=== PATIENT | female | born 1995 | race Caucasian/White ===

== ENCOUNTER 2023-08-22 11:30 | Inpatient (IN) | payer MEDICAID ==
[~2023-08-22] VITALS: Ht 170.2 cm; Wt 114.8 kg
[2023-08-22] MEDS ORDERED: BISACODYL 10 MG SUPPOSITORY PR PRN (11:45)
[2023-08-22] MEDS ORDERED: guaiFENesin/CODEINE 10ML UDC PO PRN (11:45)
[2023-08-22] MEDS ORDERED: ALPRAZolam 0.25 MG TABLET PO PRN (11:45)
[2023-08-22] MEDS ORDERED: LACTULOSE SYRUP 10GM/15ML 30ML UDC PO PRN (11:45)
[2023-08-22] MEDS ORDERED: LOPERAMIDE 2 MG CAPSULE PO PRN (11:45)
[2023-08-22] MEDS ORDERED: Sodium Phosphate/Sodium Biphosphate ADULT enema PR PRN (11:45)
[2023-08-22] MEDS ORDERED: ONDANSETRON 4 MG ORAL DISSOLVE TABLET PO PRN (11:45)
[2023-08-22] MEDS ORDERED: CALCIUM CARBONATE 500 MG CHEW TABLET PO PRN (11:45)
[2023-08-22] MEDS ORDERED: diphenhydrAMINE 25 MG TABLET PO PRN (11:45)
[2023-08-22] MEDS ORDERED: DOCUSATE SODIUM 100 MG CAPSULE PO PRN (11:45)
[2023-08-22] MEDS ORDERED: MELATONIN 3 MG TABLET PO PRN (11:45)
--- NOTE | 2023-08-22 11:47 | PM&R Post Admission Assessment ---
PM&R HP Date of Visit: Aug 22, 2023 Time of Visit: 16:45 History of Present Illness Chief complaint: CVA HPI: This is a 28-year-old female who presents from [facility] following a CVA. She has a history of migraines and prediabetes. She does currently smoke. She is having difficulty with cognition and thought processes. Headache is chronic in nature and takes Tylenol for that. Prior level of function was fully independent. H&P by EDUARDO MCNALLY CC: Li is a 28 year old female who presents to rehab due to a CVA that occurred on 08/18. HPI: Pt currently has a LEÓN that is localized to the left temporal region. This LEÓN is about the same as her usual ones in regards to pain level. She feels weakness in her rt eye and some decreased facial sensation on the forehead b/l. Pt presented herself to the ED at [facility] in [place] on Saturday 08/18. She went to the ER bc her LEÓN that started on the previous Saturday had worsened and she was losing vision in both of her eyes. Pt has a h/o migraines but this one was worse than normal. Denies every seeing a neurologist. PMH: Pre-Diabetes PSH: Rt foot bone biopsy (2015). (2020). Two natural births. All: NKDA. NKFA. Meds: Metformin 1000mg BID. Lipitor + Aspirin - both started at [facility] in [place]. SH: Currently vapes, been vaping for 2 years. Denies alcohol. Denies recreational drugs. Denies marijuana. 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 FH: Paternal Grandmother + Grandfather both had strokes (unsure of ages). Maternal: Unsure of FH. Brother: Alive, no known conditions. ROS -general: fatigue + malaise -skin: bruising, no rashes -neuro: LEÓN. no mental fogginess -MSK: no joint pain. no muscle pain. -HENT: slight double vision, no hearing loss -Cardio: no chest pain, no palpitations -Resp: No SOB, some MARTIN -GI: No bloody BM or abdominal pain -: No blood in urine, increased frequency or urgency -Psych: Depression + Anxiety -Hematologic: No bleeding or clotting disorders Exam: General: Pt is delayed with some of her responses. Pt is in visible discomfort and kept rubbing her forehead where she felt her LEÓN. Neuro: yarder puncher III-XII in tact b/l. strength 5/5 b/l in UE + LE. Gross sensation intact UE + LE b/l. Reflexes 2+ in brachioradialis + patellar b/l. Pt knew name, day of the week, location, and reason. Pt was unable to tell me the date or who the president of the [place] was. Pt was able to count by 5s starting at 0 and going to 24. Pt was able to state how many quarters are in one dollar. Cardio: Regular rate + rhythm. No gallops or murmurs were heard. Radial pulse 2+ b/l. Posterior tibialis pulse 2+ b/l. Resp: Clear lung sounds b/l. No wheezes or crackles present. Abdomen: Bruise present in LLQ. Normal bowel sounds in all 4 Qs. No abdominal tenderness in 4Qs, epigastric, or suprapubic areas. No rebound tenderness. Labs/Imaging: Working on gathering the work-up that was performed at [facility]. Assessment CVA Pre-Diabetes Current Smoker Plan CVA -maintain the current medications that was started at [facility] Pre-Diabetes -monitor the status of her level to determine if medication changes need to be made Current Smoker -discussed with pt smoking cessation Past Dxipjek-Mgtdro-Himbdv Hx Past Med/Social Hx: Reviewed Nursing Past Med/Soc Hx, Reviewed and Corrections made Patient Social History Marrital Status: cohabiting Employed/Student: unemployed Alcohol Use: Denies Use Smoking Status: Current Everyday Smoker Past Medical History Neurological: Stroke Endocrine: Diabetes, Non-Insulin dep PM&R Allergy/Meds/Data Review Allergies Coded Allergies: No Known Drug Allergies (Unverified , 08/22/23) Home Medications Scheduled Aspirin (Aspirin EC), 325 MG PO DAILY, (Reported) Atorvastatin Calcium (Atorvastatin Calcium), 80 MG PO HS, (Reported) Clonazepam (Clonazepam), 0.5 MG PO BID, (Reported) Fexofenadine HCl (Fexofenadine HCl), 60 MG PO BID, (Reported) Fluticasone Propionate (Flonase Allergy Relief), 1-2 SPRAY NSEACH DAILY, (Reported) Gabapentin (Neurontin), 300 MG PO DAILY, (Reported) Ketoconazole (Ketoconazole), 1 APPLIC TP 3X WEEKLY, (Reported) Meloxicam (Meloxicam), 15 MG PO DAILY, (Reported) Metformin HCl (Metformin HCl ER), 1,000 MG PO BID WITH MEALS, (Reported) Olopatadine HCl (Olopatadine HCl), 1 DROP OU BID, (Reported) Triamcinolone Acet (Triamcinolone Acetonide 0.1% Ointment), 1 APPLIC TP BID, (Reported) Venlafaxine HCl (Venlafaxine HCl ER), 150 MG PO DAILY, (Reported) Scheduled PRN Cyclobenzaprine HCl (Cyclobenzaprine HCl), 10 MG PO TID PRN for SPASMS, (Reported) Current Medications Current Medications Reviewed Review of Systems Constitutional: see HPI, dizziness, malaise, weakness EENTM: no symptoms reported Respiratory: no symptoms reported Cardiovascular: no symptoms reported Gastrointestinal: no symptoms reported Genitourinary: no symptoms reported Musculoskeletal: back pain, joint pain Skin: no symptoms reported Psychiatric/Neurological: Anxiety, Depressed, Headache, Numbness, Tremors, Weakness All Other Systems Reviewed Negative Unless Noted: Yes Physical Exam Physical Exam Vital Signs Capillary Refill : Height, Weight, BMI Height: '" Weight: lbs. oz. kg; BMI Method: General Appearance: No Apparent Distress, WD/WN, Chronically ill, Obese Eyes: Bilateral Eye Normal Inspection, Bilateral Eye PERRL HEENT: PERRL/EOMI, Normal ENT Inspection, Pharynx Normal Neck: Full Range of Motion, Normal Inspection, Non Tender, Supple, Carotid Bruit Respiratory: Chest Non Tender, Lungs Clear, Normal Breath Sounds, No Accessory Muscle Use, No Respiratory Distress Cardiovascular: Regular Rate, Rhythm, No Edema, No Gallop, No JVD, No Murmur, Normal Peripheral Pulses Gastrointestinal: Normal Bowel Sounds, No Organomegaly, No Pulsatile Mass, Non Tender, Soft Back: Normal Inspection, No CVA Tenderness, No Vertebral Tenderness Extremity: Normal Capillary Refill, Normal Inspection, Normal Range of Motion, Non Tender, No Calf Tenderness, No Pedal Edema Neurologic/Psychiatric: Alert, Oriented x3, yarder puncher II-XII Norm as Tested, Depressed Affect, Disoriented (Subtle recall deficit), Motor Weakness Skin: Normal Color, Warm/Dry Lymphatic: No Adenopathy PM&R Medical Assessment & Plan REHAB/MEDICAL ASSESSMENT AND PLAN: REHAB IMPAIRMENT GROUP: Right body involvement (left brain) ETIOLOGIC DIAGNOSIS: Acute ischemic infarct left thalamus, temporal and occipital lobes The comorbidities that impact the patients function and/or functional outcome by: current smoker, elevated BMI of 39, diabetes, high risk for recurrent stroke REHAB PLAN: The patient is being admitted to our comprehensive inpatient rehabilitation facility and can tolerate the intensity of service consisting of at least: 180 minutes of therapy a day, 5 out of 7 days a week Rehab treatment will consist of: PT and OT will focus on regaining function with the use of assistive devices and speech therapy will help with cognitive deficit in order to regain enough function to return home to independent living The patient/family has a good understanding of our discharge process and will benefit from an interdisciplinary inpatient rehabilitation program. The patient has potential to make improvement and is in need of at least two of the following multidisciplinary therapies including but not limited to physical, occupational, speech, and prosthetics and orthotics. Additionally the patient will need services from respiratory, nutritional services, wound care, psychology, etc. (Customize this to each patient). Given the patients complex condition and risk of further medical complications, rehabilitation services cannot be safely or effectively provided at a lower level of care such as a [facility]. BARRIERS TO DISCHARGE: stroke deficits ESTIMATED LOS: 10 days DISPOSITION: home RELEVANT CHANGES SINCE PREADMISSION SCREENING: I have compared the patients medical and functional status at the time of the preadmission screening and there are: no changes PROGNOSIS: good REHABILITATION GOALS: 1. PT and OT will focus on regaining function with the use of assistive devices and speech therapy will help with cognitive deficit in order to regain enough function to return home to independent living All the above goals were reviewed with the patient and he/she is in agreement. By signing this document, I acknowledge that I have personally performed a full physical examination on this patient within 24 hours of admission to this inpatient rehabilitation facility and have determined the patient to be able to tolerate the above course of treatment at an intensive level for a reasonable period of time. I will be completing a detailed individualized Plan of Care for this patient by day #4 of the patients stay based upon the Preadmission Screen, the Post-Admission Evaluation, and the therapy evaluations. Admission Dx/Comorbidities: (1) CVA (cerebral vascular accident) ICD Codes: I63.9 - Cerebral infarction, unspecified Assessment/Plan Assessment and Plan Assess & Plan/Chief Complaint Assessment: CVA Obesity BMI 39 Prediabetes Migraines Plan: Supportive care Monitor closely CVA protocol meds MAGDA NASH DO Aug 22, 2023 11:47
[2023-08-22 13:32] VITALS: BP 138/86
[2023-08-22] MEDS ORDERED: KETO120S13 TP (13:36)
[2023-08-22] MEDS ORDERED: METF-478 PO (13:36)
[2023-08-22] MEDS ORDERED: FEXO-338 PO (13:36)
[2023-08-22] MEDS ORDERED: FLUT9.9S NSEACH (13:36)
[2023-08-22] MEDS ORDERED: ATOR80TA76 PO (13:36)
[2023-08-22] MEDS ORDERED: ASPI325T32 PO (13:36)
[2023-08-22] MEDS ORDERED: VENL150C98 PO (13:36)
[2023-08-22] MEDS ORDERED: GABA300C PO (13:36)
[2023-08-22] MEDS ORDERED: CLON0.5T4 PO (13:36)
[2023-08-22] MEDS ORDERED: MELO15TA39 PO (13:36)
[2023-08-22] MEDS ORDERED: OLOP5DRO26 OU (13:36)
[2023-08-22] MEDS ORDERED: TR1O15 TP (13:36)
[2023-08-22] MEDS ORDERED: CYCL10TA25 PO (13:36)
[2023-08-22] MEDS: ACETAMINOPHEN 325 MG TABLET PO PRN (14:11)
--- NOTE | 2023-08-22 14:52 | Occupational Therapy Eval ---
OT Evaluation-General/PLF Medical Diagnosis Admission Date Aug 22, 2023 at 13:26 Medical Diagnosis: CVA Onset Date: Aug 18, 2023 Therapy Diagnosis Therapy Diagnosis: decreased ADL status Precautions Precautions/Isolations: Fall Prevention, Standard Precautions Referral Physician: Ron Referral Reason: Evaluation/Treatment Medical History Additional Medical History anemia, anxiety, depression, debridement of R gread and 2nd toes with bone biopsy 2017, migraine LEÓN Current History 08/18/23 R facial droop, R weakness, slurred speech. migraine headaches daily for past week. Brought to ED where initial head CT negative, thus received TPA after review by neurology. Pt transferred to ARU 08/22/23. Social History Home: Multilevel Current Living Status: Significant Other Steps Into Home: 1 (small threshold) Pt lives with spouse, 2 y.o. daughter. She has a turtle, 2 cats and a dog. 2 roommates live downstairs with their animals. ADL-Prior Level of Function SCALE: Activities may be completed with or without assistive devices. 9-Pgqdfitffy-ksjsenu completes the activity by him/herself with no assistance from a helper. 5-Set-up or Clean-up Assistance-helper sets up or cleans up; patient completes activity. [place] assists only prior to or following the activity. 4-Supervision or Touching Assistance-helper provides verbal cues and/or touching/steadying and/or contact guard assistance as patient completes activity. Assistance may be provided throughout the activity or intermittently. 3-Partial/Moderate Assistance-helper does LESS THAN HALF the effort. [place] lifts, holds or supports trunk or limbs, but provides less than half the effort. 2-Substantial/Maximal Assistance-helper does MORE THAN HALF the effort. [place] lifts or holds trunk or limbs and provides more than half the effort. 4-Qybysvyna-nxlhsz does ALL the effort. Patient does none of the effort to complete the activity. Or, the assistance of 2 or more helpers is required for the patient to complete the activity. If activity was not attempted, code reason: 7-Patient Refused. 9-Not Applicable-not attempted and the patient did not perform the activity before the current illness, exacerbation or injury. 10-Not Attempted due to Environmental Limitations-(lack of equipment, weather restraints, etc.). 88-Not Attempted due to Medical Conditions or Safety Concerns. ADL PLOF Comments Pt reports IND with ADLs and functional mobility, no AD. 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 Pt had some difficulty with word finding and noted tremors/shakiness in head, increasing as pt fatigues. Mental Status/Objective Patient Orientation: Person, Place, Time, Situation Current Glasses/Contacts: Yes Upper Extremity ROM WFL, BUE shoulder flexion to approx 160 degrees; RUE "lags" behind L slightly. Upper Extremity Coordination grossly WFL. Slightly decreased coordination/proprioception RUE. Upper Extremity Sensation WFL per pt report Upper Extremity Strength grossly 4/5 ADL-Treatment Eating (QC): 5 (per pt report) Shower/Bathe Self (QC): 7 Upper Body Dressing (QC): 5 (Per pt report.) Lower Body Dressing (QC): 7 Toileting Hygiene (QC): 7 Other Treatments Pt provided information about PLOF and home set up and participated in UE screen. Pt declines completing ADLs at this time due to extreme fatigue, agreeable to shower and dressing tasks tomorrow. Pt had increased difficulty keeping eyes open throughout conversation, some difficulty with word finding, and tremors/shakiness in head (more prominent with increased concentration with tasks and speaking). Pt transferred sit to supine (elevated HOB) independently. Post tx, pt in bed, call light in reach and all needs met. Education OT Patient Education: Correct positioning, Energy conservation, Modified ADL techniques, Progress toward Goal/Update tx plan, Purpose of tx/functional activities, Rehab process Teaching Recipient: Patient Teaching Methods: Discussion Response to Teaching: Verbalize Understanding BIMS CAM BIMS Expression of Ideas and Wants: Difficulty Understanding Verbal Content: Understands Brief Interview/Mental Status: Yes IRF ONUR BIMS: IRF ONUR BIMS Response (Comments) Value Repitition of Three Words Three 3 Recalls Socks Yes, No Cue Required 2 Recalls Blue Yes, No Cue Required 2 Recalls Bed No, Could Not Recall 0 Year Correct 3 Month Accurate Within 5 Days 2 Day Correct 1 Total 13 Patient Normally Able to Recal: Current Session, Location of own room, That he/she in a hsp Should Staff Asses. Mental St.: No Memory/Recall Ability: Current Season, Location of Own Room, That He/She in Hospit[facility] CAM Mental Status Change/Baseline: 0 Inattention: 0 Disorganized thinkin Altered level of consciousness: 0 OT Regulatory Specialist Goals Regulatory Specialist Goals Time Frame: Sep 11, 2023 Eating (QC): 6 Oral Hygiene (QC): 6 Toileting Hygiene (QC): 6 Shower/Bathe Self (QC): 6 Upper Body Dressing (QC): 6 Lower Body Dressing (QC): 6 On/Off Footwear (QC): 6 Additional Goals: 1-Demonstrate ADL Tasks, 2-Verbalize Understanding, 3- ImproveStrength/Luisa 1=Demonstrate adherence to instructed precautions during ADL tasks. 2=Patient will verbalize/demonstrate understanding of assistive devices/modifications for ADL. 3=Patient will improve strength/tolerance for activity to enable patient to perform ADL's. OT Education/Plan Problem List/Assessment Assessment: Decreased Activ Tolerance, Decreased UE Strength, Impaired Funct Balance, Impaired I ADL's, Impaired Self-Care Skills, Restricted Funct UE ROM Discharge Recommendations Plan/Recommendations: Continue POC Equpiment Recommendations-D/C: Extended Bath Bench Treatment Plan/Plan of Care Patient would benefit from OT for education, treatment and training to promote independence in ADL's, mobility, safety and/or upper extremity function for ADL's. Plan of Care: ADL Retraining, Functional Mobility, Group Exercise/Act as Ind, UE Funct Exercise/Act, UE Neuromus Re-Ed/Coord, Visual/Perceptual Retrain Treatment Duration: Sep 11, 2023 Frequency: At least 5 of 7 days/Wk (IRF) Estimated Hrs Per Day: 1.5 hours per day Agreement: Yes Rehab Potential: Good Time Start Time: 13:40 Stop Time: 14:15 DATE: Aug 22, 2023 Total Time Billed (hr/min): 35 Billed Treatment Time 1, CHIP CHENEY OT Aug 22, 2023 14:52
--- NOTE | 2023-08-22 15:05 | Physical Therapy Evaluation ---
PT Evaluation-General Medical Diagnosis Admission Date Aug 22, 2023 at 13:26 Medical Diagnosis: CVA Onset Date: Aug 18, 2023 Therapy Diagnosis Therapy Diagnosis: impaired mobility, weakness, (R) neglect, balance deficits, fall risk Precautions Precautions/Isolations: Fall Prevention, Standard Precautions Dysconjugate gaze - eye patch Weight Bear Status Full Weight Bearing Full Weight Bearing Referral Physician: prachi Reason for Referral: Evaluation/Treatment Medical History Reviewed History: Yes Social History Home: Multilevel Current Living Status: Children PT Steps Into Home: 1 (1 small threshold/curb step up to platform then level into home.) Has a turtle, 2 cats and a dog in the house. Has 2 room mates that live downstairs with their animals. Prior Prior Level of Function SCALE: Activities may be completed with or without assistive devices. 1-Sqjznaqhre-fvcvatf completes the activity by him/herself with no assistance from a helper. 5-Set-up or Clean-up Assistance-helper sets up or cleans up; patient completes activity. [place] assists only prior to or following the activity. 4-Supervision or Touching Assistance-helper provides verbal cues and/or touching/steadying and/or contact guard assistance as patient completes activity. Assistance may be provided throughout the activity or intermittently. 3-Partial/Moderate Assistance-helper does LESS THAN HALF the effort. [place] lifts, holds or supports trunk or limbs, but provides less than half the effort. 2-Substantial/Maximal Assistance-helper does MORE THAN HALF the effort. [place] lifts or holds trunk or limbs and provides more than half the effort. 0-Nopuvxkmc-rnszbl does ALL the effort. Patient does none of the effort to complete the activity. Or, the assistance of 2 or more helpers is required for the patient to complete the activity. If activity was not attempted, code reason: 7-Patient Refused. 9-Not Applicable-not attempted and the patient did not perform the activity before the current illness, exacerbation or injury. 10-Not Attempted due to Environmental Limitations-(lack of equipment, weather restraints, etc.). 88-Not Attempted due to Medical Conditions or Safety Concerns. 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 Driving. Did all cooking and housekeeping. Tub/shower at home. PT Evaluation-Current Subjective 3-10 (L) forehead. Pain Section J - Health Conditions 1. Rarely or not at all 2. Occasionally 3. Frequently 4. Almost constantly 8. Unable to answer Pain Effect on Sleep: 3 Pain Interference with Therapy: 3 Pain Interference w/Day-to-Day: 3 Pt/Family Goals To return home at highest functional level. ROM/Strength ROM Lower Extremities WFL (B) LE's Strength Lower Extremities MMT to (B) LEs in sitting: (R) hip flexion 3+/5, abd/ad 3+/5, knee flexion 3/5, knee extension 4+/5, ankle 4/5 DF/PF. (L) LE 5/5 all planes all joints. Neuromuscular (Tone, Coordination, Reflexes) mild motor coordination impairment (R)>(L) LE. Intermittent head/neck tremor noted, more pronounced with exertion - association reaction? Sensory Vision: Neglect Right Hearing: Functional Hand Dominance: Right Sensation Right Lower Extremit: Intact Sensation Left Lower Extremity: Intact Transfers Roll Left & Right (QC): 6 Sit to Lying (QC): 6 Lying to Sitting/Side of Bed(Q: 6 Sit to Stand (QC): 4 (CGA to steady initially) Chair/Qyv-ze-Xdfyz Xfer(QC): 3 (min (A) /s device) Toilet Transfer (QC): 3 (min (A) /s device) Car Transfer (QC): 3 (mod(A) /s device to guard hip on seat when bringing legs into "car") Gait Does the Patient Walk?: Yes Mode of Locomotion: Walk Anticipated Mode of Locomotion: Walk Walk 10 feet (QC): 3 (min (A) /s device) Walk 50 ft with 2 Turns(QC): 3 (min (A) /s device) Walk 150 ft (QC): 3 (min (A) /s device) Walking 10ft/uneven surface-QC: 3 (min (A) /s device) Distance: 200' Gait Assistive Device: None Comments/Gait Description (R) neglect and need of cues for (R) obstacles and (A) to redirect gait Wheelchair Training Does the Pt Use a Wheelchair?: No Wheel 50 ft with 2 turns (QC): 9 Wheel 150 ft (QC): 9 Stairs 1 Step (curb) (QC): 3 (min (A) /s device) 4 Steps (QC): 3 (min (A) /c (B) rails - mixed stepping sequence) 12 Steps (QC): 3 (min (A) /c (B) rails - mixed stepping sequence) Balance Sitting Static: Good Sitting Dynamic: Fair Standing Static: Fair Standing Dynamic: Fair Picking up an Object (QC): 3 (min-mod (A) for balance, no device) Special Test Comments standing balance test: 4/5. sitting balance test: 4+/5 Assessment/Needs 28 y/o female s/p CVA with dysconjugate gaze, (R) neglect, (R) hemiplegia, gait/mobility/safety/balance deficits that would benefit from intensive ARU intervention. Rehab Potential: Good PT Senior Care Goals Heavy Repairer Goals PT Senior Care Goals Time Frame: Sep 05, 2023 Roll Left to Right (QC): 6 Sit to Lying (QC): 6 Lying-Sitting on Side/Bed(QC): 6 Sit to Stand (QC): 6 Chair/Rtm-zp-Hukac Xfer(QC): 6 Toilet/Commode Transfer (QC): 6 Car Transfer (QC): 6 Walk 10 feet (QC): 6 Walk 10ft-Uneven Surface(QC): 6 Walk 50ft with 2 Turns (QC): 6 Walk 150 ft (QC): 6 Wheel 50 feet with 2 turns (QC: 9 Wheel 150 feet: 9 1 Step (curb) (QC): 6 (/c rail) 4 Steps (QC): 6 12 Steps (QC): 6 Picking up an Object (QC): 6 KU sitting and standing balance scores: 5/5 PT Plan Problem List Problem List: Activity Tolerance, Functional Strength, Safety, Balance, Gait, Transfer, Bed Mobility Treatment/Plan Treatment Plan: Continue Plan of Care Treatment Plan: Education, Functional Activity Luisa, Functional Strength, Group Therapy, Gait, Safety, Therapeutic Exercise, Transfers Treatment Duration: Sep 05, 2023 Frequency: At least 5 of 7 days/Wk (IRF) Estimated Hrs Per Day: 1.5 hours per day Safety Risks/Education Patient Education: Gait Training, Transfer Techniques Teaching Recipient: Patient Teaching Methods: Demonstration, Discussion Response to Teaching: Reinforcement Needed Discharge Recommendations Therapy Discharge Recommendati: Home & Family, Post Acute PT Time Time In: 1450 Time Out: 1530 DATE: Aug 22, 2023 Total Billed Treatment Time: 40 Total Billed Treatment EVM 40 Kristel Galarza PT Aug 22, 2023 15:05
--- NOTE | 2023-08-22 15:11 | Progress Note ---
ULIEDUARDO 08/22/23 1511: Progress Note CC: Li is a 28 year old female who presents to rehab due to a CVA that occurred on 08/18. HPI: Pt currently has a LEÓN that is localized to the left temporal region. This H A is about the same as her usual ones in regards to pain level. She feels weakness in her rt eye and some decreased facial sensation on the forehead b/l. Pt presented herself to the ED at [facility] in [place] on Saturday 08/18. She went to the ER bc her LEÓN that started on the previous Saturday had worsened and she was losing vision in both of her eyes. Pt has a h/o migraines but this one was worse than normal. Denies every seeing a neurologist. PMH: Pre-Diabetes PSH: Rt foot bone biopsy (2015). (2020). Two natural births. All: NKDA. NKFA. Meds: Metformin 1000mg BID. Lipitor + Aspirin - both started at [facility] in [place]. SH: Currently vapes, been vaping for 2 years. Denies alcohol. Denies recreational drugs. Denies marijuana. 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 FH: Paternal Grandmother + Grandfather both had strokes (unsure of ages). Maternal: Unsure of FH. Brother: Alive, no known conditions. ROS -general: fatigue + malaise -skin: bruising, no rashes -neuro: LEÓN. no mental fogginess -MSK: no joint pain. no muscle pain. -HENT: slight double vision, no hearing loss -Cardio: no chest pain, no palpitations -Resp: No SOB, some MARTIN -GI: No bloody BM or abdominal pain -: No blood in urine, increased frequency or urgency -Psych: Depression + Anxiety -Hematologic: No bleeding or clotting disorders Exam: General: Pt is delayed with some of her responses. Pt is in visible discomfort and kept rubbing her forehead where she felt her LEÓN. Neuro: shake feeder III-XII in tact b/l. strength 5/5 b/l in UE + LE. Gross sensation intact UE + LE b/l. Reflexes 2+ in brachioradialis + patellar b/l. Pt knew name, day of the week, location, and reason. Pt was unable to tell me the date or who the president of the [place] was. Pt was able to count by 5s starting at 0 and going to 24. Pt was able to state how many quarters are in one dollar. Cardio: Regular rate + rhythm. No gallops or murmurs were heard. Radial pulse 2+ b/l. Posterior tibialis pulse 2+ b/l. Resp: Clear lung sounds b/l. No wheezes or crackles present. Abdomen: Bruise present in LLQ. Normal bowel sounds in all 4 Qs. No abdominal tenderness in 4Qs, epigastric, or suprapubic areas. No rebound tenderness. Labs/Imaging: Working on gathering the work-up that was performed at [facility]. Assessment CVA Pre-Diabetes Current Smoker Plan CVA -maintain the current medications that was started at [facility] Pre-Diabetes -monitor the status of her level to determine if medication changes need to be made Current Smoker -discussed with pt smoking cessation MICHELLE NASH DO 08/22/23 2030: Supervisory-Addendum Brief Verification & Attestation Participated in pt care: history, MDM, physical Personally performed: exam, history, MDM, supervision of care Care discussed with: Medical Student Procedures: n/a Results interpretation: Verified all documentation Verification and Attestation of Medical Student E/M Service A medical student performed and documented this service in my presence. I reviewed and verified all information documented by the medical student and made modifications to such information, when appropriate. I personally performed the physical exam and medical decision making. Michelle Nash Aug 22, 2023,20:30 EDUARDO MCNALLY Aug 22, 2023 15:11 MICHELLE NASH DO Aug 22, 2023 20:30
[2023-08-22] MEDS ORDERED: NON-FORMULARY MEDICATION 1 EA EA (Ketoconazole 1 APPLIC) TP SCH (15:15)
[2023-08-22] MEDS ORDERED: RX-CYCLOBENZAPRINE 10 MG (FLEXERIL) TAB PPK#3 PO PRN (15:15)
[2023-08-22] MEDS ORDERED: CYCLOBENZAPRINE 10 MG TABLET PO PRN (15:30)
[2023-08-22] MEDS ORDERED: HYDROcodone/ACETAMINOPHEN 5 MG/325 MG TABLET PO PRN (17:00)
[2023-08-22] MEDS: metFORMIN EXT RELEASE 500 MG TABLET PO SCH (17:07)
[2023-08-22] MEDS: clonazePAM 0.5 MG TABLET PO SCH (20:57)
[2023-08-22] MEDS: OLOPATADINE 0.1% OU SCH (20:57)
[2023-08-22] MEDS: DOCUSATE SODIUM 100 MG CAPSULE PO SCH (20:57)
[2023-08-22] MEDS: SENNA W/DOCUSATE TABLET PO SCH (20:57)
[2023-08-22] MEDS: TRIAMCINOLONE 0.1% OINT (KENALOG) 15 GM TUBE TP SCH (20:58)
[2023-08-22] MEDS ORDERED: FEXOFENADINE HCL 60 MG PO SCH (21:00)
[2023-08-22 21:47] VITALS: BP 118/79
[2023-08-23] MEDS: VENlafaxine XR 75 MG (EFFEXOR XR) CAP PO SCH (06:02)
[2023-08-23 06:09] LABS: BASOPHILS % (AUTO) 0 % (0-10); EOSINOPHILS # (AUTO) 0.1 10^3/uL (0.0-0.3); EOSINOPHILS % (AUTO) 1 % (0-10); HEMATOCRIT 40 % (35-52); HEMOGLOBIN 13.1 g/dL (11.5-16.0); LYMPHOCYTES # (AUTO) 2.1 10^3/uL (1.0-4.0); LYMPHOCYTES % (AUTO) 17 % (12-44); MEAN CORPUSCULAR HEMOGLOBIN 30 pg (25-34); MEAN CORPUSCULAR HGB CONC 33 g/dL (32-36); MEAN CORPUSCULAR VOLUME 91 fL (80-99); MEAN PLATELET VOLUME 9.9 fL (9.0-12.2); MONOCYTES # (AUTO) 0.7 10^3/uL (0.0-1.0); MONOCYTES % (AUTO) 6 % (0-12); NEUTROPHILS # (AUTO) 9.3 10^3/uL (1.8-7.8); NEUTROPHILS % (AUTO) 76 % (42-75); PLATELET COUNT 239 10^3/uL (130-400); WHITE BLOOD COUNT 12.2 10^3/uL (4.3-11.0)
[2023-08-23 06:42] LABS: ALBUMIN 3.4 GM/DL (3.2-4.5); BILIRUBIN,TOTAL 0.3 MG/DL (0.1-1.0); CALCIUM 8.8 MG/DL (8.5-10.1); CREATININE SERUM 0.78 MG/DL (0.60-1.30); POTASSIUM 4.1 MMOL/L (3.6-5.0); TOTAL PROTEIN 6.5 GM/DL (6.4-8.2)
[2023-08-23 08:00] VITALS: BP 126/75
--- NOTE | 2023-08-23 08:23 | Physical Therapy Daily Note ---
PT Daily Note-Current Subjective States she had an allergic reaction last night to something she ate and did not sleep well. States she does not have a headache. Pain Section J - Health Conditions 1. Rarely or not at all 2. Occasionally 3. Frequently 4. Almost constantly 8. Unable to answer Pain Effect on Sleep: 2 Pain Interference with Therapy: 2 Pain Interference w/Day-to-Day: 2 Transfers SCALE: Activities may be completed with or without assistive devices. 3-Ccypcdqtzc-fcqcobo completes the activity by him/herself with no assistance from a helper. 5-Set-up or Clean-up Assistance-helper sets up or cleans up; patient completes activity. [place] assists only prior to or following the activity. 4-Supervision or Touching Assistance-helper provides verbal cues and/or touching/steadying and/or contact guard assistance as patient completes activity. Assistance may be provided throughout the activity or intermittently. 3-Partial/Moderate Assistance-helper does LESS THAN HALF the effort. [place] lifts, holds or supports trunk or limbs, but provides less than half the effort. 2-Substantial/Maximal Assistance-helper does MORE THAN HALF the effort. [place] lifts or holds trunk or limbs and provides more than half the effort. 4-Dknekpjna-kjbueo does ALL the effort. Patient does none of the effort to complete the activity. Or, the assistance of 2 or more helpers is required for the patient to complete the activity. If activity was not attempted, code reason: 7-Patient Refused. 9-Not Applicable-not attempted and the patient did not perform the activity before the current illness, exacerbation or injury. 10-Not Attempted due to Environmental Limitations-(lack of equipment, weather restraints, etc.). 88-Not Attempted due to Medical Conditions or Safety Concerns. Lying to Sitting/Side of Bed(Q: 6 Sit to Stand (QC): 4 (SBA) Chair/Fkl-zn-Tiesl Xfer(QC): 4 (SBA-CGA) Toilet Transfer (QC): 4 (CGA for descent to toilet) Weight Bearing Full Weight Bearing Full Weight Bearing Gait Training Distance: 200' x 2 Walk 10 feet (QC): 4 (CGA /c cues to scan environment and avoid (R) obstacles, cues to stay centered in jack[address]) Walk 50 ft with 2 Turns(QC): 4 (CGA /c cues to scan environment and avoid (R) obstacles, cues to stay centered in jack[address] way) Walk 150 ft (QC): 4 (CGA /c cues to scan environment and avoid (R) obstacles, cues to stay centered in jack[address]) Gait Assistive Device: None Exercises O2 sats 98%, HR 105 at 8 minute donn on Nustep. NuStep Minutes: 15 NuStep Workload: 2 Neuromuscular Standing balance at map with scanning task and locating items on map x 8 ' -- difficulty finding items in lower (R) quadrant. Cues to use (R) UE to trace paths on map. Walking CGA while scanning environment, cues needed, to find 8 cones at different heights and locations to help scan environment, especially (R), to accommodate (R) neglect. Able to pick cone up off floor with CGA PT Securities Analyst Goals Shelter Goals PT Shelter Goals Time Frame: Sep 05, 2023 Roll Left & Right (QC): 6 Sit to Lying (QC): 6 Lying-Sitting on Side/Bed(QC): 6 Sit to Stand (QC): 6 Chair/Fsc-xl-Xrdod Xfer(QC): 6 Toilet Transfer (QC): 6 Car Transfer (QC): 6 Does the Patient Walk: Yes Walk 10 feet (QC): 6 Walk 50ft with 2 Turns (QC): 6 Walk 150 ft (QC): 6 Walking 10ft on Uneven Surface: 6 1 Step (curb) (QC): 6 (/c rail) 4 Steps (QC): 6 12 Steps (QC): 6 Picking up an Object (QC): 6 Wheel 50 feet with 2 turns (QC: 9 Wheel 150 feet: 9 PT Plan Treatment/Plan Treatment Plan: Continue Plan of Care Treatment Plan: Education, Functional Activity Luisa, Functional Strength, Group Therapy, Gait, Safety, Therapeutic Exercise, Transfers Treatment Duration: Sep 05, 2023 Frequency: At least 5 of 7 days/Wk (IRF) Estimated Hrs Per Day: 1.5 hours per day Time Time In: 800 Time Out: 845 DATE: Aug 23, 2023 Total Billed Treatment Time: 45 Total Billed Treatment 1 GT, 1 EX, 1 NRE. Kristel Galarza PT Aug 23, 2023 08:23
[2023-08-23] MEDS ORDERED: NON-FORMULARY MEDICATION 1 EA EA (Meloxicam 15 MG) PO SCH (09:00)
[2023-08-23] MEDS ORDERED: NON-FORMULARY MEDICATION 1 EA EA (Aspirin (Aspirin EC) 325 MG) PO SCH (09:00)
[2023-08-23] MEDS ORDERED: NON-FORMULARY MEDICATION 1 EA EA (Fluticasone Propionate (Flonase Allergy Relief) 0 SPRAY) NSEACH SCH (09:00)
[2023-08-23] MEDS ORDERED: NON-FORMULARY MEDICATION 1 EA EA (Venlafaxine HCl (Venlafaxine HCl ER) 150 MG) PO SCH (09:00)
[2023-08-23] MEDS: SENNA W/DOCUSATE TABLET PO SCH ×2 (09:03→19:07)
[2023-08-23] MEDS: DOCUSATE SODIUM 100 MG CAPSULE PO SCH ×2 (09:03→19:07)
[2023-08-23] MEDS: metFORMIN EXT RELEASE 500 MG TABLET PO SCH ×2 (09:06→17:31)
[2023-08-23] MEDS: ASPIRIN enteric coated 81MG TABLET PO SCH (09:06)
[2023-08-23] MEDS: GABAPENTIN 300 MG CAPSULE PO SCH (09:06)
[2023-08-23] MEDS: LORATADINE 10 MG TABLET PO SCH (09:06)
[2023-08-23] MEDS: MELOXICAM 7.5 MG TABLET PO SCH (09:06)
[2023-08-23] MEDS: clonazePAM 0.5 MG TABLET PO SCH ×2 (09:06→20:45)
[2023-08-23] MEDS: TRIAMCINOLONE 0.1% OINT (KENALOG) 15 GM TUBE TP SCH ×2 (09:07→20:45)
[2023-08-23] MEDS: OLOPATADINE 0.1% OU SCH ×2 (09:07→20:45)
[2023-08-23] MEDS: FLUTICASONE NASAL SPRAY (120 SPRAYS) NS SCH (09:08)
--- NOTE | 2023-08-23 09:49 | Progress Note ---
ULIEDUARDO 08/23/23 0949: Progress Note 08/22: Li had a CVA on 08/18 that was found at [facility]. Pt was transferred from [facility] to [facility] on 08/22. PT and OT performed their initial evaluations and dx was decreased ADL status, impaired mobility, weakness, (R) neglect, balance deficits, fall risk. 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 Prior level of function was rated 6s. PT rated the ROM Lower Extremities WFL (B) LE's anf Strength Lower Extremities: MMT to (B) LEs in sitting: (R) hip flexion 3+/5, abd/ad 3+/5, knee flexion 3/5, knee extension 4+/5, ankle 4/5 DF/PF. (L) LE 5/5 all planes all joints. PT found mild motor coordination impairment (R)>(L) LE. Intermittent head/neck tremor noted, more pronounced with exertion - association reaction. Vision has right neglect. Hearing is functional. Pt is right hand dominant. Sensation to LEs are intact b/l. Transfers were rate 3 through 6. Toilet and car transfer were both rated 3. Pt was able to walk 200'. Due to the right neglect the pt is in need of cues for right obstacles and to redirect gait. Balance is fair. 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 Today (08/23): Pt was wearing her eye patch over her left eye during the visit and verbalized that she would have to transfer it to the other eye when it was appropriate. She reported muscle weakness localized to her mouth that occurred last night and is not currently present. She is unsure if it was due to an allergic rxn to some of the medications. Her LEÓN is almost gone and is significantly decreased in intensity compared to yesterday. Pt was oriented to person, place, and reason. PT rated her transfers a 4 with the 6 given to lying to sitting/side of bed. This is an improvement from yesterday where they were 3s. Pt is full weight bearing. Pt walked 200' twice. PT reports that when locating items on a map she had difficulty finding items in the lower right quadrant. Cues were needed to trace the map using her right UE. MICHELLE NASH DO 08/24/23 0631: Supervisory-Addendum Brief Verification & Attestation Participated in pt care: history, MDM, physical Personally performed: exam, history, MDM, supervision of care Care discussed with: Medical Student Procedures: n/a Results interpretation: Verified all documentation Verification and Attestation of Medical Student E/M Service A medical student performed and documented this service in my presence. I reviewed and verified all information documented by the medical student and made modifications to such information, when appropriate. I personally performed the physical exam and medical decision making. Michelle Nash, Aug 24, 2023,06:31 EDUARDO MCNALLY Aug 23, 2023 09:49 MICHELLE NASH DO Aug 24, 2023 06:31
--- NOTE | 2023-08-23 11:37 | ST Cognitive Linguistic Eval ---
Speech Evaluation-General Medical Diagnosis CVA Onset Date: Aug 18, 2023 Therapy Diagnosis Therapy Diagnosis: Cognitive Linguistic Deficit Precautions Precautions/Isolations: Standard Precautions Referral Referring Physician: Dr. Velasquez Reason for Referral: Evaluation/Treatment Medical History anemia, anxiety, depression, debridement of R gread and 2nd toes with bone biopsy 2017, migraine LEÓN Current History 08/18/23 R facial droop, R weakness, slurred speech. migraine headaches daily for past week. Brought to ED where initial head CT negative, thus received TPA after review by neurology. Pt transferred to ARU 08/22/23. 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 Subjective Pt was sitting in bedside chair and expressed that she was tired. Language Eval: Auditory Comprehends Simple Yes/No Ques: Functional Follows General Conversations: Functional Language Eval: Verbal Language Completes Spontaneous Greeting: Functional Word Finding: Mild States Basic Personal Info: Functional Expresses Complex Ideas: Moderate Language Evaluation: Reading Follows Simple Written Direct: Functional Comprehends Multiple Sentences: Mild Objective Formal/Standardized Tests SLUMS, Berger Naming Test, and portions of the Western Aphasia Battery Results Pt scores an 11/30 on the SLUMS. Pt demonstrates deficits in simple mathematical calculations (0/3), short-term recall (2/5), attention to task (1/2), clock drawing (0/4), and answering questions after being read a short story (2/8). Pt demonstrates 85% accuracy on Berger Naming Test, some word finding was missed due to lack of knowledge of item. Several portions of the Western Aphasia Battery were given, including, spontaneous speech, auditory verbal comprehension, and reading. Pt demonstrates adequate ability to have a conversational exchange. Pt answered questions appropriately. Pt's speech is characterized by a slow rate, with a repetition of initial sound at single word production level, noticed infrequently during connected speech. Pt was able to answer yes/no questions with 100% accuracy. Reading is intact with shorter sentences, however, there is a break down of comprehension with longer, more complex sentences. Oral Motor/Speech Production Slow and halting speech initiation, initial sound repetition at single word level. Speech Short Term Goals Short Term Goals Short Term Goals Pt will complete simple problem solving tasks with 90% accuracy. Pt will demonstrate ability to comprehend details from moderately complex passages with verbal presentation with 90% accuracy. Pt will formulate complex language in spoken and written form with good organization at 90% accuracy. Pt will read at the paragraph level with 90% comprehension. Speech Senior Care Goals Buyer Internship Goals Pt will demonstrate improved cognitive-linguistic abilities for problem solving, written and verbal expression. Speech-Plan Patient/Family Goals Patient/Family Goals: Pt desires to return to best possible level of function. Treatment Plan Speech Therapy Treatment Plan: Continue Plan of Care Frequency: At least 5 of 7 days/Wk (IRF) Estimated Hrs Per Day: Other (45 min/day) Rehab Potential: Good Pt/Family Agrees to Plan: Yes Time Speech Therapy Time In: 09:35 Speech Therapy Time Out: 10:15 DATE: Aug 23, 2023 Total Billed Time: 40 Billed Treatment Time 1 SPSNDCOMP 40 min Jess Layne Aug 23, 2023 11:37
--- NOTE | 2023-08-23 12:36 | Occupational Ther Daily Note ---
OT Current Status-Daily Note Subjective Pt agreeable to OT Tx with focus on ADLs. ADL-Treatment Therapy Code Descriptions/Definitions Functional [place] Measure: 0=Not Assessed/NA 4=Minimal Assistance 1=Total Assistance 5=Supervision or Setup 2=Maximal Assistance 6=Modified [place] 3=Moderate Assistance 7=Complete IndependenceSCALE: Activities may be completed with or without assistive devices. 8-Axtshhoayh-ksujpjb completes the activity by him/herself with no assistance from a helper. 5-Set-up or Clean-up Assistance-helper sets up or cleans up; patient completes activity. [place] assists only prior to or following the activity. 4-Supervision or Touching Assistance-helper provides verbal cues and/or touching/steadying and/or contact guard assistance as patient completes activity. Assistance may be provided throughout the activity or intermittently. 3-Partial/Moderate Assistance-helper does LESS THAN HALF the effort. [place] lifts, holds or supports trunk or limbs, but provides less than half the effort. 2-Substantial/Maximal Assistance-helper does MORE THAN HALF the effort. [place] lifts or holds trunk or limbs and provides more than half the effort. 0-Wtcfoolzm-fueydx does ALL the effort. Patient does none of the effort to complete the activity. Or, the assistance of 2 or more helpers is required for the patient to complete the activity. If activity was not attempted, code reason: 7-Patient Refused. 9-Not Applicable-not attempted and the patient did not perform the activity before the current illness, exacerbation or injury. 10-Not Attempted due to Environmental Limitations-(lack of equipment, weather restraints, etc.). 88-Not Attempted due to Medical Conditions or Safety Concerns. Eating (QC): 5 Oral Hygiene (QC): 6 (seated) Shower/Bathe Self (QC): 4 (SBA) Upper Body Dressing (QC): 3 (Min A donning bra after shower. Pt able to complete tshirt with set up.) Lower Body Dressing (QC): 4 (SBA) On/Off Footwear: 5 Toileting Hygiene (QC): 4 (SBA) Toilet Transfer (QC): 4 (CGA to sit; SBA to stand) Other Treatment Pt stood from recliner, SBA, then transferred into bathroom and onto IN, no AD, CGA-SBA. Pt doffed clothes, SBA, completed shower, SBA. Pt requests to use bathroom, CGA transfer to toilet. Pt donned clothes at toilet, then transferred to chair at sink for grooming tasks. OT assisted pt with combing hair and pulling hair back due to tangles. Pt returned to recliner, CGA-SBA, no AD. Post tx, pt in recliner, call light in reach and all needs met. Education OT Patient Education: Correct positioning, Energy conservation, Modified ADL techniques, Progress toward Goal/Update tx plan, Purpose of tx/functional activities, Rehab process, Safety issues Teaching Recipient: Patient Teaching Methods: Discussion Response to Teaching: Verbalize Understanding OT Lounge Car Attendant Goals Lounge Car Attendant Goals Time Frame: Sep 11, 2023 Acute change in mental status: 0 Inattention: 0 Disorganized thinkin Altered level of consciousness: 0 Eating (QC): 6 Oral Hygiene (QC): 6 Toileting Hygiene (QC): 6 Shower/Bathe Self (QC): 6 Upper Body Dressing (QC): 6 Lower Body Dressing (QC): 6 On/Off Footwear (QC): 6 Additional Goals: 1-Demonstrate ADL Tasks, 2-Verbalize Understanding, 3- ImproveStrength/Luisa 1=Demonstrate adherence to instructed precautions during ADL tasks. 2=Patient will verbalize/demonstrate understanding of assistive devices/modifications for ADL. 3=Patient will improve strength/tolerance for activity to enable patient to perform ADL's. OT Education/Plan Problem List/Assessment Assessment: Decreased Activ Tolerance, Decreased UE Strength, Impaired Funct Balance, Impaired I ADL's, Impaired Self-Care Skills, Visual-Perceptual Deficit Discharge Recommendations Plan/Recommendations: Continue POC Treatment Plan/Plan of Care Patient would benefit from OT for education, treatment and training to promote independence in ADL's, mobility, safety and/or upper extremity function for ADL's. Plan of Care: ADL Retraining, Functional Mobility, Group Exercise/Act as Ind, UE Funct Exercise/Act, UE Neuromus Re-Ed/Coord, Visual/Perceptual Retrain Treatment Duration: Sep 11, 2023 Frequency: At least 5 of 7 days/Wk (IRF) Estimated Hrs Per Day: 1.5 hours per day Agreement: Yes Rehab Potential: Good Time Start Time: 10:15 Stop Time: 11:30 DATE: Aug 23, 2023 Total Time Billed (hr/min): 75 Billed Treatment Time 1, ADL 5 CHIP GONZALEZ OT Aug 23, 2023 12:36
--- NOTE | 2023-08-23 12:51 | PM&R Progress Note ---
Subjective HPI/CC On Admission Date Seen by Provider: Aug 23, 2023 Time Seen by Provider: 12:00 Subjective/Events-last exam 08/23/2023: Doing better Using eye patch and alternating No pain reported BP stable Review of Systems General: Fatigue, Malaise Objective Exam Vital Signs Vital Signs Date Time Temp Pulse Resp B/P (MAP) Pulse Ox O2 Delivery O2 Flow Rate FiO2 08/23/23 20:53 Room Air 08/23/23 20:04 36.8 91 16 115/54 (74) 97 Capillary Refill : General Appearance: No Apparent Distress, WD/WN, Chronically ill, Obese HEENT: PERRL/EOMI, Normal ENT Inspection, Pharynx Normal Neck: Full Range of Motion, Normal Inspection, Non Tender, Supple, Carotid Bruit Respiratory: Chest Non Tender, Lungs Clear, Normal Breath Sounds, No Accessory Muscle Use, No Respiratory Distress Cardiovascular: Regular Rate, Rhythm, No Edema, No Gallop, No JVD, No Murmur, Normal Peripheral Pulses Gastrointestinal: Normal Bowel Sounds, No Organomegaly, No Pulsatile Mass, Non Tender, Soft Back: Normal Inspection, No CVA Tenderness, No Vertebral Tenderness Extremity: Normal Capillary Refill, Normal Inspection, Normal Range of Motion, Non Tender, No Calf Tenderness, No Pedal Edema Neurologic/Psychiatric: Alert, Oriented x3, supervisor airplane flight attendant II-XII Norm as Tested, Depressed Affect, Disoriented (Subtle recall deficit), Motor Weakness Skin: Normal Color, Warm/Dry Lymphatic: No Adenopathy Results/Procedures Lab Patient resulted labs reviewed. FIM Transfers Therapy Code Descriptions/Definitions Functional [place] Measure: 0=Not Assessed/NA 4=Minimal Assistance 1=Total Assistance 5=Supervision or Setup 2=Maximal Assistance 6=Modified [place] 3=Moderate Assistance 7=Complete IndependenceSCALE: Activities may be completed with or without assistive devices. 8-Nxmyhriijq-uxjeozo completes the activity by him/herself with no assistance from a helper. 5-Set-up or Clean-up Assistance-helper sets up or cleans up; patient completes activity. [place] assists only prior to or following the activity. 4-Supervision or Touching Assistance-helper provides verbal cues and/or touching/steadying and/or contact guard assistance as patient completes activity. Assistance may be provided throughout the activity or intermittently. 3-Partial/Moderate Assistance-helper does LESS THAN HALF the effort. [place] lifts, holds or supports trunk or limbs, but provides less than half the effort. 2-Substantial/Maximal Assistance-helper does MORE THAN HALF the effort. [place] lifts or holds trunk or limbs and provides more than half the effort. 8-Xxcpnzyex-nitxqs does ALL the effort. Patient does none of the effort to com plete the activity. Or, the assistance of 2 or more helpers is required for the patient to complete the activity. If activity was not attempted, code reason: 7-Patient Refused. 9-Not Applicable-not attempted and the patient did not perform the activity before the current illness, exacerbation or injury. 10-Not Attempted due to Environmental Limitations-(lack of equipment, weather restraints, etc.). 88-Not Attempted due to Medical Conditions or Safety Concerns. Roll Left to Right (QC): 6 Sit to Lying (QC): 6 Sit to Stand (QC): 4 (SBA) Chair/Azv-tq-Hxjjf Xfer(QC): 4 (SBA-CGA) Car Transfer (QC): 3 (mod(A) /s device to guard hip on seat when bringing legs into "car") Gait Training Does the Patient Walk?: Yes Distance: 200' x 2 Walk 10 feet (QC): 4 (CGA /c cues to scan environment and avoid (R) obstacles, cues to stay centered in jackson way) Walk 50 ft with 2 Turns(QC): 4 (CGA /c cues to scan environment and avoid (R) obstacles, cues to stay centered in jack[address] way) Walk 150 ft (QC): 4 (CGA /c cues to scan environment and avoid (R) obstacles, cues to stay centered in jack[address] way) Walking 10ft/uneven surface-QC: 3 (min (A) /s device) Gait Assistive Device: None Wheelchair Training Does the Pt Use a Wheelchair?: No Wheel 50 ft with 2 turns (QC): 9 Wheel 150 ft (QC): 9 Stair Training 1 Step (curb) (QC): 3 (min (A) /s device) 4 Steps (QC): 3 (min (A) /c (B) rails - mixed stepping sequence) 12 Steps (QC): 3 (min (A) /c (B) rails - mixed stepping sequence) Balance Picking up an Object (QC): 3 (min-mod (A) for balance, no device) ADL-Treatment Eating (QC): 5 Oral Hygiene (QC): 6 (seated) Shower/Bathe Self (QC): 4 (SBA) Upper Body Dressing (QC): 3 (Min A donning bra after shower. Pt able to complete tshirt with set up.) Lower Body Dressing (QC): 4 (SBA) On/Off Footwear (QC): 5 Toileting Hygiene (QC): 4 (SBA) Toilet Transfer (QC): 4 (CGA to sit; SBA to stand) Assessment/Plan Assessment and Plan Assess & Plan/Chief Complaint Assessment: CVA Obesity BMI 39 Prediabetes Migraines Plan: Supportive care Monitor closely CVA protocol meds 08/23/2023: Monitor BP Eye patch technique (1) CVA (cerebral vascular accident) MAGDA NASH DO Aug 23, 2023 12:51
--- NOTE | 2023-08-23 14:43 | Occupational Ther Daily Note ---
OT Current Status-Daily Note Subjective Pt alert, sitting in recliner. Pt agrees to therapy. No c/o pain. Mental Status/Objective Patient Orientation: Person, Place, Time, Situation Attachments: Other-See Comments (eye patch) ADL-Treatment Therapy Code Descriptions/Definitions Functional [place] Measure: 0=Not Assessed/NA 4=Minimal Assistance 1=Total Assistance 5=Supervision or Setup 2=Maximal Assistance 6=Modified [place] 3=Moderate Assistance 7=Complete IndependenceSCALE: Activities may be completed with or without assistive devices. 9-Gvtfudhzcu-dntxael completes the activity by him/herself with no assistance from a helper. 5-Set-up or Clean-up Assistance-helper sets up or cleans up; patient completes activity. [place] assists only prior to or following the activity. 4-Supervision or Touching Assistance-helper provides verbal cues and/or touching/steadying and/or contact guard assistance as patient completes activity. Assistance may be provided throughout the activity or intermittently. 3-Partial/Moderate Assistance-helper does LESS THAN HALF the effort. [place] lifts, holds or supports trunk or limbs, but provides less than half the effort. 2-Substantial/Maximal Assistance-helper does MORE THAN HALF the effort. [place] lifts or holds trunk or limbs and provides more than half the effort. 9-Ttruuiifm-yqldee does ALL the effort. Patient does none of the effort to complete the activity. Or, the assistance of 2 or more helpers is required for the patient to complete the activity. If activity was not attempted, code reason: 7-Patient Refused. 9-Not Applicable-not attempted and the patient did not perform the activity before the current illness, exacerbation or injury. 10-Not Attempted due to Environmental Limitations-(lack of equipment, weather restraints, etc.). 88-Not Attempted due to Medical Conditions or Safety Concerns. Toileting Hygiene (QC): 4 (Cleanses self on toilet then close SBA while pt hikes pants over hips due to balance issues.) Toilet Transfer (QC): 4 (Using grabbars, pt completes toilet transfers with CGA for safety.) Other Treatment Pt had forgotten which eye to place eye patch on, placed bracelet on wrist that eye patch is on. Pt ambulated without AD to therapy gym with minimal LOB, only CGA to regain balance. Pt completed ocular-motor exercises, convergence and lateral eye movement with holding head at midline. Pt reported double vision and item being seen at midline to right (item was placed on left) then far item no visual changes. Pt became dizzy with lateral L/R eye movement after first cross of midline. Pt instructed to complete these two exercises in room. After therapy, pt lying in bed with call light/phone in reach. All needs met in room. OT Usp Goals Usp Goals Time Frame: Sep 11, 2023 Acute change in mental status: 0 Inattention: 0 Disorganized thinkin Altered level of consciousness: 0 Eating (QC): 6 Oral Hygiene (QC): 6 Toileting Hygiene (QC): 6 Shower/Bathe Self (QC): 6 Upper Body Dressing (QC): 6 Lower Body Dressing (QC): 6 On/Off Footwear (QC): 6 Additional Goals: 1-Demonstrate ADL Tasks, 2-Verbalize Understanding, 3- ImproveStrength/Luisa 1=Demonstrate adherence to instructed precautions during ADL tasks. 2=Patient will verbalize/demonstrate understanding of assistive devices/modifications for ADL. 3=Patient will improve strength/tolerance for activity to enable patient to perform ADL's. OT Education/Plan Problem List/Assessment Assessment: Decreased Activ Tolerance, Decreased UE Strength, Impaired Coordination, Impaired Funct Balance, Impaired Self-Care Skills Discharge Recommendations Plan/Recommendations: Continue POC Treatment Plan/Plan of Care Patient would benefit from OT for education, treatment and training to promote independence in ADL's, mobility, safety and/or upper extremity function for ADL's. Plan of Care: ADL Retraining, Functional Mobility, Group Exercise/Act as Ind, UE Funct Exercise/Act, UE Neuromus Re-Ed/Coord, Visual/Perceptual Retrain Treatment Duration: Sep 11, 2023 Frequency: At least 5 of 7 days/Wk (IRF) Estimated Hrs Per Day: 1.5 hours per day Agreement: Yes Rehab Potential: Good Time Start Time: 13:10 Stop Time: 13:35 DATE: Aug 23, 2023 Total Time Billed (hr/min): 25 Billed Treatment Time 1 visit-NM 2 (25 min) STELLA HANEY Aug 23, 2023 14:43
[2023-08-23 20:04] VITALS: BP 115/54
[2023-08-23] MEDS: ACETAMINOPHEN 325 MG TABLET PO PRN (20:50)
[2023-08-24] MEDS: VENlafaxine XR 75 MG (EFFEXOR XR) CAP PO SCH (06:24)
[2023-08-24 08:00] VITALS: BP 135/68
[2023-08-24] MEDS: LORATADINE 10 MG TABLET PO SCH (09:16)
[2023-08-24] MEDS: clonazePAM 0.5 MG TABLET PO SCH ×2 (09:17→21:31)
[2023-08-24] MEDS: MELOXICAM 7.5 MG TABLET PO SCH (09:17)
[2023-08-24] MEDS: GABAPENTIN 300 MG CAPSULE PO SCH (09:17)
[2023-08-24] MEDS: ASPIRIN enteric coated 81MG TABLET PO SCH (09:17)
[2023-08-24] MEDS: metFORMIN EXT RELEASE 500 MG TABLET PO SCH ×2 (09:17→17:03)
[2023-08-24] MEDS: ACETAMINOPHEN 325 MG TABLET PO PRN (09:24)
[2023-08-24] MEDS: FLUTICASONE NASAL SPRAY (120 SPRAYS) NS SCH (09:27)
[2023-08-24] MEDS: OLOPATADINE 0.1% OU SCH ×2 (09:28→21:30)
[2023-08-24] MEDS: DOCUSATE SODIUM 100 MG CAPSULE PO SCH ×2 (09:31→21:36)
[2023-08-24] MEDS: SENNA W/DOCUSATE TABLET PO SCH ×2 (09:31→21:36)
[2023-08-24] MEDS: TRIAMCINOLONE 0.1% OINT (KENALOG) 15 GM TUBE TP SCH ×2 (09:31→21:36)
--- NOTE | 2023-08-24 11:50 | PM&R Progress Note ---
Subjective HPI/CC On Admission Date Seen by Provider: Aug 24, 2023 Time Seen by Provider: 11:50 Subjective/Events-last exam 08/24/2023: No new issues Family visiting with her today No pain reported BP stable 08/23/2023: Doing better Using eye patch and alternating No pain reported BP stable Review of Systems General: Fatigue, Malaise Objective Exam Vital Signs Vital Signs Date Time Temp Pulse Resp B/P (MAP) Pulse Ox O2 Delivery O2 Flow Rate FiO2 08/24/23 08:00 36.5 105 18 135/68 (90) 97 Room Air Capillary Refill : General Appearance: No Apparent Distress, WD/WN, Chronically ill, Obese HEENT: PERRL/EOMI, Normal ENT Inspection, Pharynx Normal Neck: Full Range of Motion, Normal Inspection, Non Tender, Supple, Carotid Bruit Respiratory: Chest Non Tender, Lungs Clear, Normal Breath Sounds, No Accessory Muscle Use, No Respiratory Distress Cardiovascular: Regular Rate, Rhythm, No Edema, No Gallop, No JVD, No Murmur, Normal Peripheral Pulses Gastrointestinal: Normal Bowel Sounds, No Organomegaly, No Pulsatile Mass, Non Tender, Soft Back: Normal Inspection, No CVA Tenderness, No Vertebral Tenderness Extremity: Normal Capillary Refill, Normal Inspection, Normal Range of Motion, Non Tender, No Calf Tenderness, No Pedal Edema Neurologic/Psychiatric: Alert, Oriented x3, p d driver II-XII Norm as Tested, Depressed Affect, Disoriented (Subtle recall deficit), Motor Weakness Skin: Normal Color, Warm/Dry Lymphatic: No Adenopathy Results/Procedures Lab Patient resulted labs reviewed. FIM Transfers Therapy Code Descriptions/Definitions Functional [place] Measure: 0=Not Assessed/NA 4=Minimal Assistance 1=Total Assistance 5=Supervision or Setup 2=Maximal Assistance 6=Modified [place] 3=Moderate Assistance 7=Complete IndependenceSCALE: Activities may be completed with or without assistive devices. 7-Cennetudwd-uskvtuy completes the activity by him/herself with no assistance from a helper. 5-Set-up or Clean-up Assistance-helper sets up or cleans up; patient completes activity. [place] assists only prior to or following the activity. 4-Supervision or Touching Assistance-helper provides verbal cues and/or touching/steadying and/or contact guard assistance as patient completes activity. Assistance may be provided throughout the activity or intermittently. 3-Partial/Moderate Assistance-helper does LESS THAN HALF the effort. [place] lifts, holds or supports trunk or limbs, but provides less than half the effort. 2-Substantial/Maximal Assistance-helper does MORE THAN HALF the effort. [place] lifts or holds trunk or limbs and provides more than half the effort. 5-Cuqrnmivn-lpsrcn does ALL the effort. Patient does none of the effort to complete the activity. Or, the assistance of 2 or more helpers is required for the patient to complete the activity. If activity was not attempted, code reason: 7-Patient Refused. 9-Not Applicable-not attempted and the patient did not perform the activity before the current illness, exacerbation or injury. 10-Not Attempted due to Environmental Limitations-(lack of equipment, weather restraints, etc.). 88-Not Attempted due to Medical Conditions or Safety Concerns. Roll Left to Right (QC): 6 Sit to Lying (QC): 6 Sit to Stand (QC): 4 (SBA) Chair/Aub-hg-Mibcd Xfer(QC): 4 (SBA-CGA) Car Transfer (QC): 3 (mod(A) /s device to guard hip on seat when bringing legs into "car") Gait Training Does the Patient Walk?: Yes Distance: 200' x 2 Walk 10 feet (QC): 4 (CGA /c cues to scan environment and avoid (R) obstacles, cues to stay centered in [address]) Walk 50 ft with 2 Turns(QC): 4 (CGA /c cues to scan environment and avoid (R) obstacles, cues to stay centered in [address]) Walk 150 ft (QC): 4 (CGA /c cues to scan environment and avoid (R) obstacles, cues to stay centered in [address]) Walking 10ft/uneven surface-QC: 3 (min (A) /s device) Gait Assistive Device: None Wheelchair Training Does the Pt Use a Wheelchair?: No Wheel 50 ft with 2 turns (QC): 9 Wheel 150 ft (QC): 9 Stair Training 1 Step (curb) (QC): 3 (min (A) /s device) 4 Steps (QC): 3 (min (A) /c (B) rails - mixed stepping sequence) 12 Steps (QC): 3 (min (A) /c (B) rails - mixed stepping sequence) Balance Picking up an Object (QC): 3 (min-mod (A) for balance, no device) ADL-Treatment Eating (QC): 5 Oral Hygiene (QC): 6 (seated) Shower/Bathe Self (QC): 4 (SBA) Upper Body Dressing (QC): 3 (Min A donning bra after shower. Pt able to complete tshirt with set up.) Lower Body Dressing (QC): 4 (SBA) On/Off Footwear (QC): 5 Toileting Hygiene (QC): 4 (Cleanses self on toilet then close SBA while pt hikes pants over hips due to balance issues.) Toilet Transfer (QC): 4 (Using grabbars, pt completes toilet transfers with CGA for safety.) Assessment/Plan Assessment and Plan Assess & Plan/Chief Complaint Assessment: CVA Obesity BMI 39 Prediabetes Migraines Plan: Supportive care Monitor closely CVA protocol meds 08/23/2023: Monitor BP Eye patch technique 08/24/2023: Monitor BP Improved overall (1) CVA (cerebral vascular accident) MAGDA NASH DO Aug 24, 2023 11:50
--- NOTE | 2023-08-24 11:50 | Individualized Plan of Care ---
Individualized Plan of Care Rehab Nursing IPOC Order Admission Date Aug 22, 2023 at 13:26 Current Orders Orders Admission Order(Inpt,Obs,Sdc) (08/22/23 11:42) Vital Signs: Per Unit Policy ( 08,16,00 (08/22/23 11:42) Filippo Lujan 09,21 (08/22/23 11:42) Sequential Compression Device [id number] (08/22/23 11:42) Career Based Intervention Coordinator-Inpt Rehab Con (08/22/23 11:42) Rehab Nursing Orders-Ipoc (08/22/23 11:42) Physical Therapy Rehab Orders (08/22/23 11:42) Occupational Therapy Rehab Ord (08/22/23 11:42) Speech Therapy Rehab Orders (08/22/23 11:42) Cbc And Automated Diff (08/23/23 06:00) Comprehensive Metabolic Panel (08/23/23 06:00) Precautions (Aru) (08/22/23 11:42) Weekly Weight WEEK (08/22/23 11:42) Rehab-Intensity Of Therapy (08/22/23 11:42) Initiate Admission Nursing Pro .admission (08/22/23 11:42) Alprazolam Tablet (Alprazolam Tablet) (08/22/23 11:45) Calcium Carbonate Chew Tablet (Calcium C (08/22/23 11:45) Diphenhydramine Tablet (Diphenhydramine (08/22/23 11:45) Docusate Sodium Capsule (Docusate Sodium (08/22/23 21:00) Docusate Sodium Capsule (Docusate Sodium (08/22/23 11:45) Bisacodyl Suppository (Bisacodyl Supposi (08/22/23 11:45) Lactulose Oral Solution (Enulose Oral So (08/22/23 11:45) Na Phos/Na Biphos Adult Enema (Na Phos/N (08/22/23 11:45) Guaifenesin/Codeine Syrup (Guaifenesin/C (08/22/23 11:45) Loperamide Capsule (Loperamide Capsule) (08/22/23 11:45) Melatonin Tablet (Melatonin Tablet) (08/22/23 11:45) Polyethylene Glycol Powder (Polyethylen (08/22/23 21:00) Ondansetron Oral Dissolve Tab (Ondanset (08/22/23 11:45) Senna W/Docusate Tablet (Senna W/Docusat (08/22/23 21:00) Acetaminophen Tablet (Acetaminophen Ta (08/22/23 11:45) Initiate Admission Nursing Pro .admission (08/22/23 11:42) Admission Arrival Bed Request (08/22/23 13:26) Atorvastatin Tablet (Atorvastatin Tablet (08/22/23 21:00) Clonazepam Tablet (Clonazepam Tablet) (08/22/23 21:00) Rx-Cyclobenzaprine Tablet (Rx-Flexeril T (08/22/23 15:15) Gabapentin Capsule (Gabapentin Capsule) (08/23/23 09:00) Metformin Xr Tablet (Metformin Xr Tablet (08/22/23 18:00) Olopatadine 0.1% Ophth Soln (Olopatadine (08/22/23 21:00) Triamcinolone 0.1% Ointment (Kenalog 0.1 (08/22/23 21:00) (Nf) Aspirin (Aspirin Ec) (08/23/23 09:00) (Nf) Fexofenadine Hcl (08/22/23 21:00) (Nf) Fluticasone Propionate (Flonase All (08/23/23 09:00) (Nf) Ketoconazole (08/22/23 15:15) (Nf) Meloxicam (08/23/23 09:00) (Nf) Venlafaxine Hcl (Venlafaxine Hcl Er (08/23/23 09:00) Cyclobenzaprine Tablet (Cyclobenzaprine (08/22/23 15:30) Meloxicam Tablet (Meloxicam Tablet) (08/23/23 09:00) Fluticasone Nasal [place] (Fluticasone Alec (08/23/23 09:00) Venlafaxine Xr Capsule (Effexor Xr Capsu (08/23/23 07:00) Aspirin Enteric Coated Tablet (Ecotrin T (08/23/23 09:00) Loratadine Tablet (Loratadine Tablet) (08/23/23 09:00) Patient Visit (08/22/23 ) Pt Eval Moderate Complexity (08/22/23 ) General/Regular (08/22/23 Lunch) Code/Resuscitation (08/22/23 16:38) Hydrocodone/Apap 5/325 Tablet (Hydrocod (08/22/23 17:00) Patient Visit (08/23/23 ) Gait Training, Ea 15 Min (08/23/23 ) Exercise Therap, Ea 15 Min (08/23/23 ) Ex Neuromuscular, Ea 15 Min (08/23/23 ) Patient Visit (08/23/23 ) Speech Sound Lang Comp (08/23/23 ) Rehab Nursing Orders: Ongoing Assess. of Cognitive Status, Ongoing Assess. of Function Status, Bladder Management, Bladder Scan, Bladder Training, Bowel Management, Bowel Training, Disease Management & Educaiton, DVT Prophylaxis, Fall Prevention, Fluid/Electrolyte/Nutrition Mgmt, Infection Prevention, Medication Management & Education, Management of Risks & Complications, Man agement of Skin Intergrity, Nutrition Management, Pain Management, Patient/Family Support, Safety Management Intensity of Therapy to be met Patient to be seen: Min.3h per day/5 of 7d PT IPOC Problem List: Activity Tolerance, Functional Strength, Safety, Balance, Gait, Transfer, Bed Mobility Treatment Plan: Continue Plan of Care Education, Functional Activity Luisa, Functional Strength, Group Therapy, Gait, Safety, Therapeutic Exercise, Transfers Treatment Duration: Sep 05, 2023 Frequency: At least 5 of 7 days/Wk (IRF) Estimated Hrs Per Day: 1.5 hours per day OT IPOC Problems: Decreased Activ Tolerance, Decreased UE Strength, Impaired Coordination, Impaired Funct Balance, Impaired Self-Care Skills OT Treatment, Training and Edu: Yes Plan of Care: ADL Retraining, Functional Mobility, Group Exercise/Act as Ind, UE Funct Exercise/Act, UE Neuromus Re-Ed/Coord, Visual/Perceptual Retrain Treatment Duration: Sep 11, 2023 Frequency: At least 5 of 7 days/Wk (IRF) Estimated Hrs Per Day: 1.[address] IPOC Speech Therapy Treatment Plan: Continue Plan of Care Treatment Duration: Aug 23, 2023 Frequency: At least 5 of 7 days/Wk (IRF) Estimated Hrs Per Day: Other (45 min/day) Career Based Intervention Coordinator/Case Mgmt Career Based Intervention Coordinator/Case Managemen: Discharge Planning Dietitian/Installation And Service Technician Dietitian/Installation And Service Technician to monitor nutritional status and make changes and/or recommendations as needed and work with speech pathology on dietary upgrades as the occur. Physician IPOC Medical Issues being managed closely and that require the 24 hour availability of a physician: Recent CVA with cognitive deficits and visual deficits will require aggressive ST and PT OT management in order to regain function with the use of AD in order to return home and will be at high risk for extension of CVA Medical Issues: Bowel/Bladder Function, DVT Prophylaxis, Falls Precautions, Fluid/Electrolyte/Nutrition Balance, Infection Protection, Pain Management Brief Synthesis of Preadmission Screen, Post-Admission Evaluation, and Therapy Evaluations: PT OT and ST will focus on regaining function with the use of AD in order to regain function along with aggressive ST techniques to resolve cognitive deficit s and be able ro return home independently Medical Prognosis: Good Anticipated Length of Stay: 7 days MAGDA NASH DO Aug 24, 2023 11:50
--- NOTE | 2023-08-24 12:35 | Occupational Ther Daily Note ---
OT Current Status-Daily Note Subjective Pt was received lying supine in bed. Pt very pleasant and willing to participate in therapy. Pain Numeric Pain Scale: 0-No Pain Location: No Pain Reported Mental Status/Objective Patient Orientation: Person, Place, Time, Situation Attachments: IV ADL-Treatment Therapy Code Descriptions/Definitions Functional [place] Measure: 0=Not Assessed/NA 4=Minimal Assistance 1=Total Assistance 5=Supervision or Setup 2=Maximal Assistance 6=Modified [place] 3=Moderate Assistance 7=Complete IndependenceSCALE: Activities may be completed with or without assistive devices. 0-Bquorifzbd-xlmcrmr completes the activity by him/herself with no assistance from a helper. 5-Set-up or Clean-up Assistance-helper sets up or cleans up; patient completes activity. [place] assists only prior to or following the activity. 4-Supervision or Touching Assistance-helper provides verbal cues and/or touching/steadying and/or contact guard assistance as patient completes activ ity. Assistance may be provided throughout the activity or intermittently. 3-Partial/Moderate Assistance-helper does LESS THAN HALF the effort. [place] lifts, holds or supports trunk or limbs, but provides less than half the effort. 2-Substantial/Maximal Assistance-helper does MORE THAN HALF the effort. [place] lifts or holds trunk or limbs and provides more than half the effort. 1-Kymaymisu-qqflrk does ALL the effort. Patient does none of the effort to complete the activity. Or, the assistance of 2 or more helpers is required for the patient to complete the activity. If activity was not attempted, code reason: 7-Patient Refused. 9-Not Applicable-not attempted and the patient did not perform the activity before the current illness, exacerbation or injury. 10-Not Attempted due to Environmental Limitations-(lack of equipment, weather restraints, etc.). 88-Not Attempted due to Medical Conditions or Safety Concerns. Eating (QC): 5 On/Off Footwear: 5 Other Treatment OT/PT co-treatment completed due to the need for two skilled clinicians in order to perform functional mobility and activities safely due to pt's high care level. OT focusing on activity tolerance, functional balance, UE streng th/mobility and safety awareness. Please refer to PT note for their focus and additional information. Pt completed functional mobility with no AD and SBA for balance, requiring no cues for safety. Pt completed functional dynamic standing activity for ~15mins x3 with SBA and no loss of balance, requiring min cues for safety. Pt completed visual scanning activity for ~15mins with SBA, requiring min cues to utilize scanning techniques. Pt educated and demonstrated independence with cold mill operator to warehouse picker small to large items from the floor while in standing with no LOB. Educated on and complete UE strengthening HEP with red theraband, emphasizing shoulder abduction/adduction/flexion; elbow flexion/extension and automatic profile shaper operator strengthening. Pt progressing well and is SBA for all activities this session. Pt continuing to wear her eye patch and alternating wear every 3 hours, she states that her diplopia is still present but seems to be less severe today. Education OT Patient Education: Correct positioning, Disease process, Home exercise program, Modified ADL techniques, Progress toward Goal/Update tx plan, Purpose of tx/functional activities, Rehab process, Safety issues, Transfer techniques, Use of adapted equipment Teaching Recipient: Patient Teaching Methods: Demonstration, Discussion Response to Teaching: Verbalize Understanding, Return Demonstration OT Retail Store Assistant Goals Retail Store Assistant Goals Time Frame: Sep 11, 2023 Acute change in mental status: 0 Inattention: 0 Disorganized thinkin Altered level of consciousness: 0 Eating (QC): 6 Oral Hygiene (QC): 6 Toileting Hygiene (QC): 6 Shower/Bathe Self (QC): 6 Upper Body Dressing (QC): 6 Lower Body Dressing (QC): 6 On/Off Footwear (QC): 6 Additional Goals: 1-Demonstrate ADL Tasks, 2-Verbalize Understanding, 3- ImproveStrength/Luisa 1=Demonstrate adherence to instructed precautions during ADL tasks. 2=Patient will verbalize/demonstrate understanding of assistive devices/modifications for ADL. 3=Patient will improve strength/tolerance for activity to enable patient to perform ADL's. OT Education/Plan Problem List/Assessment Assessment: Decreased Activ Tolerance, Decreased Safety Aware, Decreased UE Strength, Impaired Coordination, Impaired Funct Balance, Impaired I ADL's, Impaired Self-Care Skills, Visual-Perceptual Deficit Discharge Recommendations Plan/Recommendations: Continue POC Treatment Plan/Plan of Care Treatment,Training & Education: Yes Patient would benefit from OT for education, treatment and training to promote independence in ADL's, mobility, safety and/or upper extremity function for ADL's. Plan of Care: ADL Retraining, Functional Mobility, Group Exercise/Act as Ind, U E Funct Exercise/Act, UE Neuromus Re-Ed/Coord, Visual/Perceptual Retrain Treatment Duration: Sep 11, 2023 Frequency: At least 5 of 7 days/Wk (IRF) Estimated Hrs Per Day: 1.5 hours per day Agreement: Yes Rehab Potential: Good Time Start Time: 10:25 ([id number] Cotx OT/PT) Stop Time: 11:55 DATE: Aug 24, 2023 Total Time Billed (hr/min): 90 Billed Treatment Time 1, FA 4, EX 2 Carmen Shay OTR/L Aug 24, 2023 12:34
--- NOTE | 2023-08-24 12:50 | Physical Therapy Daily Note ---
PT Daily Note-Current Subjective Pt asleep in bed upon arrival. Pt agrees to PT/OT co-treat. Pt reports feeling fatigued/tired to start tx. Pain Location: No Pain Reported Section J - Health Conditions 1. Rarely or not at all 2. Occasionally 3. Frequently 4. Almost constantly 8. Unable to answer Pain Effect on Sleep: 2 Pain Interference with Therapy: 2 Pain Interference w/Day-to-Day: 2 Mental Status Patient Orientation: Person, Place, Situation Attachments: Other-See Comments (Eye patch for visual difficulties) Transfers SCALE: Activities may be completed with or without assistive devices. 3-Iyojdbfpjh-kptkxkf completes the activity by him/herself with no assistance from a helper. 5-Set-up or Clean-up Assistance-helper sets up or cleans up; patient completes activity. [place] assists only prior to or following the activity. 4-Supervision or Touching Assistance-helper provides verbal cues and/or touching/steadying and/or contact guard assistance as patient completes activity. Assistance may be provided throughout the activity or intermittently. 3-Partial/Moderate Assistance-helper does LESS THAN HALF the effort. [place] lifts, holds or supports trunk or limbs, but provides less than half the effort. 2-Substantial/Maximal Assistance-helper does MORE THAN HALF the effort. [place] lifts or holds trunk or limbs and provides more than half the effort. 0-Rlvbkjpcx-ornwmj does ALL the effort. Patient does none of the effort to complete the activity. Or, the assistance of 2 or more helpers is required for the patient to complete the activity. If activity was not attempted, code reason: 7-Patient Refused. 9-Not Applicable-not attempted and the patient did not perform the activity before the current illness, exacerbation or injury. 10-Not Attempted due to Environmental Limitations-(lack of equipment, weather restraints, etc.). 88-Not Attempted due to Medical Conditions or Safety Concerns. Sit to Lying (QC): 5 (SBA) Lying to Sitting/Side of Bed(Q: 5 (SBA) Sit to Stand (QC): 5 (SBA) Weight Bearing Full Weight Bearing Full Weight Bearing Gait Training Does the Patient Walk?: Yes Distance: 200' Walk 10 feet (QC): 5 (SBA) Walk 50 ft with 2 Turns(QC): 5 (SBA) Walk 150 ft (QC): 5 (SBA) Gait Assistive Device: None Wheelchair Training Does the Pt Use a Wheelchair?: No Exercises NuStep Minutes: 10 NuStep Workload: 3 Treatments OT/PT co-treatment completed due to the need for two skilled clinicians in order to perform functional mobility and activities safely due to pt's high care level. OT focusing on activity tolerance, functional balance, UE strength/mobility and safety awareness. PT focusing on LE strengthening/mobility, transfers, standing balance as well as increasing activity tolerance. Pt completed functional mobility with no AD and SBA for balance, requiring no cues for safety. Pt completed functional dynamic standing activity for ~15mins x3 with SBA and no loss of balance, requiring min cues for safety. Pt completed visual scanning activity for ~15mins with SBA, requiring min cues to utilize scanning techniques. Pt educated and demonstrated independence with office clerk routine to clerical support small to large items from the floor while in standing with no LOB. Educated on and complete UE strengthening HEP with red theraband, emphasizing shoulder abduction/adduction/flexion; elbow flexion/extension and demolition expert strengthening. PT introduced/given Seated & Supine LE EX HEP. Pt progressing well and is SBA for all activities this session. Pt continuing to wear her eye patch and alternating wear every 3 hours, she states that her diplopia is still present but seems to be less severe today. Pt re turns to room to rest in bed at end of tx w/all needs met, call light in hand. Assessment Current Status: Good Progress Pt continuing to wear her eye patch and alternating wear every 3 hours, she states that her diplopia is still present but seems to be less severe today. Pt is a little teary during tx feeling unaccomplished & not making progress. BLINDSTITCH MACHINE OPERATOR & OT reassured pt that she is making good progress w/improving balance, visual scanning and even activity tolerance. PT Jail Goals Ladle Puller Goals PT Jail Goals Time Frame: Sep 05, 2023 Roll Left & Right (QC): 6 Sit to Lying (QC): 6 Lying-Sitting on Side/Bed(QC): 6 Sit to Stand (QC): 6 Chair/Kdw-an-Eregh Xfer(QC): 6 Toilet Transfer (QC): 6 Car Transfer (QC): 6 Does the Patient Walk: Yes Walk 10 feet (QC): 6 Walk 50ft with 2 Turns (QC): 6 Walk 150 ft (QC): 6 Walking 10ft on Uneven Surface: 6 1 Step (curb) (QC): 6 (/c rail) 4 Steps (QC): 6 12 Steps (QC): 6 Picking up an Object (QC): 6 Wheel 50 feet with 2 turns (QC: 9 Wheel 150 feet: 9 PT Plan Problem List Problem List: Safety Treatment/Plan Treatment Plan: Continue Plan of Care Treatment Plan: Education, Functional Activity Luisa, Functional Strength, Group Therapy, Gait, Safety, Therapeutic Exercise, Transfers Treatment Duration: Sep 05, 2023 Frequency: At least 5 of 7 days/Wk (IRF) Estimated Hrs Per Day: 1.5 hours per day Patient and/or Family Agrees t: Yes Safety Risks/Education Patient Education: Safety Issues Teaching Recipient: Patient Teaching Methods: Demonstration, Discussion Response to Teaching: Verbalize Understanding, Return Demonstration Time Time In: 1025 Time Out: 1155 DATE: Aug 24, 2023 Total Billed Treatment Time: 90 Total Billed Treatment Co-treat w/OT for 90m 1, EX x2 (30m) & FA x4 (60m) TORSTEN MCGUIRE BLINDSTITCH MACHINE OPERATOR Aug 24, 2023 12:50
[2023-08-24 19:46] VITALS: BP 107/60
[2023-08-25] MEDS: VENlafaxine XR 75 MG (EFFEXOR XR) CAP PO SCH (06:49)
[2023-08-25 08:06] VITALS: BP 124/67
[2023-08-25] MEDS: metFORMIN EXT RELEASE 500 MG TABLET PO SCH ×2 (08:20→18:03)
[2023-08-25] MEDS: clonazePAM 0.5 MG TABLET PO SCH ×2 (08:20→21:21)
[2023-08-25] MEDS: GABAPENTIN 300 MG CAPSULE PO SCH (08:21)
--- NOTE | 2023-08-25 08:21 | PM&R Progress Note ---
Subjective HPI/CC On Admission Date Seen by Provider: Aug 25, 2023 Time Seen by Provider: 12:00 Subjective/Events-last exam 08/25/2023: No major issues No pain reported Improved cognition 08/24/2023: No new issues Family visiting with her today No pain reported BP stable 08/23/2023: Doing better Using eye patch and alternating No pain reported BP stable Review of Systems General: Fatigue, Malaise Objective Exam Vital Signs Vital Signs Date Time Temp Pulse Resp B/P (MAP) Pulse Ox O2 Delivery O2 Flow Rate FiO2 08/25/23 09:00 Room Air 08/25/23 08:06 36.1 87 16 124/67 (86) 97 Capillary Refill : General Appearance: No Apparent Distress, WD/WN, Chronically ill, Obese HEENT: PERRL/EOMI, Normal ENT Inspection, Pharynx Normal Neck: Full Range of Motion, Normal Inspection, Non Tender, Supple, Carotid Bruit Respiratory: Chest Non Tender, Lungs Clear, Normal Breath Sounds, No Accessory Muscle Use, No Respiratory Distress Cardiovascular: Regular Rate, Rhythm, No Edema, No Gallop, No JVD, No Murmur, Normal Peripheral Pulses Gastrointestinal: Normal Bowel Sounds, No Organomegaly, No Pulsatile Mass, Non Tender, Soft Back: Normal Inspection, No CVA Tenderness, No Vertebral Tenderness Extremity: Normal Capillary Refill, Normal Inspection, Normal Range of Motion, Non Tender, No Calf Tenderness, No Pedal Edema Neurologic/Psychiatric: Alert, Oriented x3, child life assistant II-XII Norm as Tested, Depress ed Affect, Disoriented (Subtle recall deficit), Motor Weakness Skin: Normal Color, Warm/Dry Lymphatic: No Adenopathy Results/Procedures Lab Patient resulted labs reviewed. FIM Transfers Therapy Code Descriptions/Definitions Functional [place] Measure: 0=Not Assessed/NA 4=Minimal Assistance 1=Total Assistance 5=Supervision or Setup 2=Maximal Assistance 6=Modified [place] 3=Moderate Assistance 7=Complete IndependenceSCALE: Activities may be completed with or without assistive devices. 5-Ruohumhaxd-ngiwsju completes the activity by him/herself with no assistance from a helper. 5-Set-up or Clean-up Assistance-helper sets up or cleans up; patient completes activity. [place] assists only prior to or following the activity. 4-Supervision or Touching Assistance-helper provides verbal cues and/or touchin g/steadying and/or contact guard assistance as patient completes activity. Assistance may be provided throughout the activity or intermittently. 3-Partial/Moderate Assistance-helper does LESS THAN HALF the effort. [place] lifts, holds or supports trunk or limbs, but provides less than half the effort. 2-Substantial/Maximal Assistance-helper does MORE THAN HALF the effort. [place] lifts or holds trunk or limbs and provides more than half the effort. 0-Xprpypewj-llrwfm does ALL the effort. Patient does none of the effort to complete the activity. Or, the assistance of 2 or more helpers is required for the patient to complete the activity. If activity was not attempted, code reason: 7-Patient Refused. 9-Not Applicable-not attempted and the patient did not perform the activity before the current illness, exacerbation or injury. 10-Not Attempted due to Environmental Limitations-(lack of equipment, weather restraints, etc.). 88-Not Attempted due to Medical Conditions or Safety Concerns. Roll Left to Right (QC): 6 Sit to Lying (QC): 5 (SBA) Sit to Stand (QC): 5 (SBA) Chair/Djl-uw-Zjhqe Xfer(QC): 4 (SBA-CGA) Car Transfer (QC): 3 (mod(A) /s device to guard hip on seat when bringing legs into "car") Gait Training Does the Patient Walk?: Yes Distance: 200' Walk 10 feet (QC): 5 (SBA) Walk 50 ft with 2 Turns(QC): 5 (SBA) Walk 150 ft (QC): 5 (SBA) Walking 10ft/uneven surface-QC: 3 (min (A) /s device) Gait Assistive Device: None Wheelchair Training Does the Pt Use a Wheelchair?: No Wheel 50 ft with 2 turns (QC): 9 Wheel 150 ft (QC): 9 Stair Training 1 Step (curb) (QC): 3 (min (A) /s device) 4 Steps (QC): 3 (min (A) /c (B) rails - mixed stepping sequence) 12 Steps (QC): 3 (min (A) /c (B) rails - mixed stepping sequence) Balance Picking up an Object (QC): 3 (min-mod (A) for balance, no device) ADL-Treatment Eating (QC): 5 Oral Hygiene (QC): 6 (seated) Shower/Bathe Self (QC): 4 (SBA) Upper Body Dressing (QC): 3 (Min A donning bra after shower. Pt able to complete tshirt with set up.) Lower Body Dressing (QC): 4 (SBA) On/Off Footwear (QC): 5 Toileting Hygiene (QC): 4 (Cleanses self on toilet then close SBA while pt hikes pants over hips due to balance issues.) Toilet Transfer (QC): 4 (Using grabbars, pt completes toilet transfers with CGA for safety.) Assessment/Plan Assessment and Plan Assess & Plan/Chief Complaint Assessment: CVA Obesity BMI 39 Prediabetes Migraines Plan: Supportive care Monitor closely CVA protocol meds 08/23/2023: Monitor BP Eye patch technique 08/24/2023: Monitor BP Improved overall 08/25/2023: Monitor closely Fall risk (1) CVA (cerebral vascular accident) MAGDA NASH DO Aug 25, 2023 08:20
[2023-08-25] MEDS: MELOXICAM 7.5 MG TABLET PO SCH (08:22)
[2023-08-25] MEDS: ASPIRIN enteric coated 81MG TABLET PO SCH (08:22)
[2023-08-25] MEDS: OLOPATADINE 0.1% OU SCH ×2 (08:23→21:21)
[2023-08-25] MEDS: FLUTICASONE NASAL SPRAY (120 SPRAYS) NS SCH (08:23)
[2023-08-25] MEDS: DOCUSATE SODIUM 100 MG CAPSULE PO SCH ×2 (08:24→21:22)
[2023-08-25] MEDS: TRIAMCINOLONE 0.1% OINT (KENALOG) 15 GM TUBE TP SCH ×2 (08:25→21:23)
[2023-08-25] MEDS: SENNA W/DOCUSATE TABLET PO SCH ×2 (08:25→21:23)
[2023-08-25] MEDS: LORATADINE 10 MG TABLET PO SCH (08:30)
[2023-08-25 19:51] VITALS: BP 112/53
--- NOTE | 2023-08-26 05:09 | PM&R Progress Note ---
Subjective HPI/CC On Admission Date Seen by Provider: Aug 26, 2023 Time Seen by Provider: 08:30 Subjective/Events-last exam 08/26/2023: Doing well No pain reported Improved vision 08/25/2023: No major issues No pain reported Improved cognition 08/24/2023: No new issues Family visiting with her today No pain reported BP stable 08/23/2023: Doing better Using eye patch and alternating No pain reported BP stable Review of Systems General: Fatigue, Malaise HEENT: Visual Changes Neurological: Weakness Objective Exam Vital Signs Vital Signs Date Time Temp Pulse Resp B/P (MAP) Pulse Ox O2 Delivery O2 Flow Rate FiO2 08/26/23 20:41 Room Air 08/26/23 19:54 36.3 93 16 107/59 (75) 95 Capillary Refill : General Appearance: No Apparent Distress, WD/WN, Chronically ill, Obese HEENT: PERRL/EOMI, Normal ENT Inspection, Pharynx Normal Neck: Full Range of Motion, Normal Inspection, Non Tender, Supple, Carotid Bruit Respiratory: Chest Non Tender, Lungs Clear, Normal Breath Sounds, No Accessory Muscle Use, No Respiratory Distress Cardiovascular: Regular Rate, Rhythm, No Edema, No Gallop, No JVD, No Murmur, Normal Peripheral Pulses Gastrointestinal: Normal Bowel Sounds, No Organomegaly, No Pulsatile Mass, Non Tender, Soft Back: Normal Inspection, No CVA Tenderness, No Vertebral Tenderness Extremity: Normal Capillary Refill, Normal Inspection, Normal Range of Motion, Non Tender, No Calf Tenderness, No Pedal Edema Neurologic/Psychiatric: Alert, Oriented x3, supervisor prepress II-XII Norm as Tested, Depressed Affect, Disoriented (Subtle recall deficit), Motor Weakness Skin: Normal Color, Warm/Dry Lymphatic: No Adenopathy Results/Procedures Lab Laboratory Tests 08/26/23 05:41 Patient resulted labs reviewed. FIM Transfers Therapy Code Descriptions/Definitions Functional [place] Measure: 0=Not Assessed/NA 4=Minimal Assistance 1=Total Assistance 5=Supervision or Setup 2=Maximal Assistance 6=Modified [place] 3=Moderate Assistance 7=Complete IndependenceSCALE: Activities may be completed with or without assistive devices. 0-Dnaiyaacpw-pkuukrs completes the activity by him/herself with no assistance from a helper. 5-Set-up or Clean-up Assistance-helper sets up or cleans up; patient completes activity. [place] assists only prior to or following the activity. 4-Supervision or Touching Assistance-helper provides verbal cues and/or touching/steadying and/or contact guard assistance as patient completes activity. Assistance may be provided throughout the activity or intermittently. 3-Partial/Moderate Assistance-helper does LESS THAN HALF the effort. [place] lifts, holds or supports trunk or limbs, but provides less than half the effort. 2-Substantial/Maximal Assistance-helper does MORE THAN HALF the effort. [place] lifts or holds trunk or limbs and provides more than half the effort. 3-Uibclruru-danlbk does ALL the effort. Patient does none of the effort to complete the activity. Or, the assistance of 2 or more helpers is required for the patient to complete the activity. If activity was not attempted, code reason: 7-Patient Refused. 9-Not Applicable-not attempted and the patient did not perform the activity before the current illness, exacerbation or injury. 10-Not Attempted due to Environmental Limitations-(lack of equipment, weather restraints, etc.). 88-Not Attempted due to Medical Conditions or Safety Concerns. Roll Left to Right (QC): 6 Sit to Lying (QC): 5 (SBA) Sit to Stand (QC): 5 (SBA) Chair/Vaf-ow-Sogzu Xfer(QC): 4 (SBA-CGA) Car Transfer (QC): 3 (mod(A) /s device to guard hip on seat when bringing legs into "car") Gait Training Does the Patient Walk?: Yes Distance: 200' Walk 10 feet (QC): 5 (SBA) Walk 50 ft with 2 Turns(QC): 5 (SBA) Walk 150 ft (QC): 5 (SBA) Walking 10ft/uneven surface-QC: 3 (min (A) /s device) Gait Assistive Device: None Wheelchair Training Does the Pt Use a Wheelchair?: No Wheel 50 ft with 2 turns (QC): 9 Wheel 150 ft (QC): 9 Stair Training 1 Step (curb) (QC): 3 (min (A) /s device) 4 Steps (QC): 3 (min (A) /c (B) rails - mixed stepping sequence) 12 Steps (QC): 3 (min (A) /c (B) rails - mixed stepping sequence) Balance Picking up an Object (QC): 3 (min-mod (A) for balance, no device) ADL-Treatment Eating (QC): 5 Oral Hygiene (QC): 6 (seated) Shower/Bathe Self (QC): 4 (SBA) Upper Body Dressing (QC): 3 (Min A donning bra after shower. Pt able to complete tshirt with set up.) Lower Body Dressing (QC): 4 (SBA) On/Off Footwear (QC): 5 Toileting Hygiene (QC): 4 (Cleanses self on toilet then close SBA while pt hikes pants over hips due to balance issues.) Toilet Transfer (QC): 4 (Using grabbars, pt completes toilet transfers with CGA for safety.) Assessment/Plan Assessment and Plan Assess & Plan/Chief Complaint Assessment: CVA Obesity BMI 39 Prediabetes Migraines Plan: Supportive care Monitor closely CVA protocol meds 08/23/2023: Monitor BP Eye patch technique 08/24/2023: Monitor BP Improved overall 08/25/2023: Monitor closely Fall risk 08/26/2023: Continue eye patch regimen (1) CVA (cerebral vascular accident) MAGDA NASH DO Aug 26, 2023 05:09
[2023-08-26 06:07] LABS: BASOPHILS % (AUTO) 0 % (0-10); EOSINOPHILS # (AUTO) 0.1 10^3/uL (0.0-0.3); EOSINOPHILS % (AUTO) 1 % (0-10); HEMATOCRIT 40 % (35-52); HEMOGLOBIN 12.8 g/dL (11.5-16.0); LYMPHOCYTES # (AUTO) 2.1 10^3/uL (1.0-4.0); LYMPHOCYTES % (AUTO) 20 % (12-44); MEAN CORPUSCULAR HEMOGLOBIN 29 pg (25-34); MEAN CORPUSCULAR HGB CONC 32 g/dL (32-36); MEAN CORPUSCULAR VOLUME 90 fL (80-99); MEAN PLATELET VOLUME 10.3 fL (9.0-12.2); MONOCYTES # (AUTO) 0.6 10^3/uL (0.0-1.0); MONOCYTES % (AUTO) 6 % (0-12); NEUTROPHILS # (AUTO) 7.4 10^3/uL (1.8-7.8); NEUTROPHILS % (AUTO) 72 % (42-75); PLATELET COUNT 224 10^3/uL (130-400); WHITE BLOOD COUNT 10.3 10^3/uL (4.3-11.0)
[2023-08-26 06:31] LABS: ALBUMIN 3.6 GM/DL (3.2-4.5); BILIRUBIN,TOTAL 0.3 MG/DL (0.1-1.0); CALCIUM 8.7 MG/DL (8.5-10.1); CREATININE SERUM 0.74 MG/DL (0.60-1.30); POTASSIUM 3.8 MMOL/L (3.6-5.0); TOTAL PROTEIN 6.8 GM/DL (6.4-8.2)
[2023-08-26] MEDS: VENlafaxine XR 75 MG (EFFEXOR XR) CAP PO SCH (06:39)
[2023-08-26 08:00] VITALS: BP 109/62
[2023-08-26] MEDS: MELOXICAM 7.5 MG TABLET PO SCH (08:21)
[2023-08-26] MEDS: clonazePAM 0.5 MG TABLET PO SCH ×2 (08:21→20:36)
[2023-08-26] MEDS: GABAPENTIN 300 MG CAPSULE PO SCH (08:21)
[2023-08-26] MEDS: LORATADINE 10 MG TABLET PO SCH (08:21)
[2023-08-26] MEDS: metFORMIN EXT RELEASE 500 MG TABLET PO SCH ×2 (08:21→18:00)
[2023-08-26] MEDS: SENNA W/DOCUSATE TABLET PO SCH ×2 (08:22→19:58)
[2023-08-26] MEDS: DOCUSATE SODIUM 100 MG CAPSULE PO SCH ×2 (08:22→19:58)
[2023-08-26] MEDS: ASPIRIN enteric coated 81MG TABLET PO SCH (08:22)
[2023-08-26] MEDS: TRIAMCINOLONE 0.1% OINT (KENALOG) 15 GM TUBE TP SCH ×2 (08:23→19:58)
[2023-08-26] MEDS: OLOPATADINE 0.1% OU SCH ×2 (08:24→20:37)
[2023-08-26] MEDS: FLUTICASONE NASAL SPRAY (120 SPRAYS) NS SCH (08:24)
--- NOTE | 2023-08-26 09:47 | Speech Therapy Daily Note ---
Speech Daily Progress Note Subjective Date Seen by Provider: Aug 26, 2023 Time Seen by Provider: 08:45 Pt was laying in bed upon FUELS SALES REPRESENTATIVE arrival, pt sat up independently to participate in session. Objective Pt completes mental organization task with min cues and 90% accuracy. Pt completes mental organization task with writing, pt completes with 65% accuracy and min cues for recall of instructions. Pt states she is embarrassed of her handwriting. FUELS SALES REPRESENTATIVE will continue working on handwriting. Pt's speech appears improved. Speech Short Term Goals Short Term Goals Short Term Goals Pt will complete simple problem solving tasks with 90% accuracy. Pt will demonstrate ability to comprehend details from moderately complex passages with verbal presentation with 90% accuracy. Pt will formulate complex language in spoken and written form with good organization at 90% accuracy. Pt will read at the paragraph level with 90% comprehension. Speech Choker Hooker Goals Choker Hooker Goals Pt will demonstrate improved cognitive-linguistic abilities for problem solving, written and verbal expression. Speech-Plan Treatment Plan Speech Therapy Treatment Plan: Continue Plan of Care Treatment Duration: Aug 23, 2023 Frequency: At least 5 of 7 days/Wk (IRF) Estimated Hrs Per Day: Other (45 min/day) Rehab Potential: Good Time Speech Therapy Time In: 08:45 Speech Therapy Time Out: 09:30 DATE: Aug 26, 2023 Total Billed Time: 45 Billed Treatment Time 1 SLTS 45 min Jess Layne Aug 26, 2023 09:46
--- NOTE | 2023-08-26 11:16 | Physical Therapy Daily Note ---
PT Daily Note-Current Subjective Patient sleepy and in bed when therapist entered room. Eye patch on (L). She states it can be removed in 10'. No c/o pain. Pain Section J - Health Conditions 1. Rarely or not at all 2. Occasionally 3. Frequently 4. Almost constantly 8. Unable to answer Pain Effect on Sleep: 1 Pain Interference with Therapy: 1 Pain Interference w/Day-to-Day: 1 Appearance Less dysconjugate gaze /c patch removal today. Transfers SCALE: Activities may be completed with or without assistive devices. 9-Xmkizozbox-fnvtcxh completes the activity by him/herself with no assistance from a helper. 5-Set-up or Clean-up Assistance-helper sets up or cleans up; patient completes activity. [place] assists only prior to or following the activity. 4-Supervision or Touching Assistance-helper provides verbal cues and/or touching/steadying and/or contact guard assistance as patient completes activity. Assistance may be provided throughout the activity or intermittently. 3-Partial/Moderate Assistance-helper does LESS THAN HALF the effort. [place] lifts, holds or supports trunk or limbs, but provides less than half the effort. 2-Substantial/Maximal Assistance-helper does MORE THAN HALF the effort. [place] l ifts or holds trunk or limbs and provides more than half the effort. 8-Nucymbbno-rdoidj does ALL the effort. Patient does none of the effort to complete the activity. Or, the assistance of 2 or more helpers is required for the patient to complete the activity. If activity was not attempted, code reason: 7-Patient Refused. 9-Not Applicable-not attempted and the patient did not perform the activity before the current illness, exacerbation or injury. 10-Not Attempted due to Environmental Limitations-(lack of equipment, weather restraints, etc.). 88-Not Attempted due to Medical Conditions or Safety Concerns. Roll Left & Right (QC): 6 Lying to Sitting/Side of Bed(Q: 6 Sit to Stand (QC): 6 Chair/Srb-wh-Ttfju Xfer(QC): 6 Toilet Transfer (QC): 6 (Toilet hygiene (I). Able to wash hands (I) at sink in standing /p toileting. ) Able to don tennis shoes (I). Weight Bearing Full Weight Bearing Full Weight Bearing Gait Training Distance: 250' Walk 150 ft (QC): 4 (SBA /c prn cues to (R) obstacles - bumped into doorjam on (R) while exiting room.) Stair Training 12 Steps (QC): 4 (SBA /c (B) rails) Exercises NuStep Minutes: 8 NuStep Workload: 3 Neuromuscular Standing balance ex at steps CGA: tap ups to randomly called out color and LE laterality x 30 /c 1 EMPLOYEE RELATIONS SPECIALIST, x 30 /s EMPLOYEE RELATIONS SPECIALIST. 2 mild LOB's to (R) - self-corrected. :30 second timed tap ups alternating feet /s EMPLOYEE RELATIONS SPECIALIST x 2. Walking in common keeping stride with PT forward and retro. Walking in common areas with cues for "go" to walk fast, "stop", "slow" to walk slow. Patient able to change speed /s LOB. Kicking task for standing balance and foot/eye coordination x 20 reps alternating feet /s eye patch, then 20 more reps /c patch on (R) eye - no LOB.s Throwing/catching task for hand/eye coordination and to facilitate (R) UE use -- under hand toss/catch x 20, chest pass/catch x 20, bounce pass catch x 20, (R) handed toss/catch x 20 -- good (R) use /s c/o fatigue. Standing on foam in // bars: red ball right/left transfer with gaze/head following ball (no EMPLOYEE RELATIONS SPECIALIST) x 10 (B). Red ball lift up/down with gaze/head following x 10 /s LOB. Eyes closed standing on foam 5 reps of :10 -- leaned to (R) on last 2 reps requiring min (A). Treatments Less dysconjugate gaze today. Upright balance/coordination tasks tolerated well with improved (R) UE use. Gait improved to SBA-(I) level. Recommend working on floor transfers next session. Assessment Current Status: Good Progress PT Shelter Goals Salary Manager Goals PT Shelter Goals Time Frame: Sep 05, 2023 Roll Left & Right (QC): 6 Sit to Lying (QC): 6 Lying-Sitting on Side/Bed(QC): 6 Sit to Stand (QC): 6 Chair/Koi-az-Nmzes Xfer(QC): 6 Toilet Transfer (QC): 6 Car Transfer (QC): 6 Does the Patient Walk: Yes Walk 10 feet (QC): 6 Walk 50ft with 2 Turns (QC): 6 Walk 150 ft (QC): 6 Walking 10ft on Uneven Surface: 6 1 Step (curb) (QC): 6 (/c rail) 4 Steps (QC): 6 12 Steps (QC): 6 Picking up an Object (QC): 6 Wheel 50 feet with 2 turns (QC: 9 Wheel 150 feet: 9 PT Plan Treatment/Plan Treatment Plan: Continue Plan of Care Treatment Plan: Education, Functional Activity Luisa, Functional Strength, Group Therapy, Gait, Safety, Therapeutic Exercise, Transfers Treatment Duration: Sep 05, 2023 Frequency: At least 5 of 7 days/Wk (IRF) Estimated Hrs Per Day: 1.5 hours per day Patient and/or Family Agrees t: Yes Time Time In: 830 Time Out: 930 DATE: Aug 26, 2023 Total Billed Treatment Time: 60 Total Billed Treatment 1, 1GT, 2 NM, 1 EX = 60' Kristel Galarza PT Aug 26, 2023 11:16
--- NOTE | 2023-08-26 11:58 | Occupational Ther Daily Note ---
OT Current Status-Daily Note Subjective Pt agreeable to OT Tx. She feels like her main problem right now is her vision deficit/double vision Mental Status/Objective Patient Orientation: Normal For Age ADL-Treatment Therapy Code Descriptions/Definitions Functional [place] Measure: 0=Not Assessed/NA 4=Minimal Assistance 1=Total Assistance 5=Supervision or Setup 2=Maximal Assistance 6=Modified [place] 3=Moderate Assistance 7=Complete IndependenceSCALE: Activities may be completed with or without assistive devices. 7-Kpugcxhtud-qnqdgnh completes the activity by him/herself with no assistance from a helper. 5-Set-up or Clean-up Assistance-helper sets up or cleans up; patient completes activity. [place] assists only prior to or following the activity. 4-Supervision or Touching Assistance-helper provides verbal cues and/or to uching/steadying and/or contact guard assistance as patient completes activity. Assistance may be provided throughout the activity or intermittently. 3-Partial/Moderate Assistance-helper does LESS THAN HALF the effort. [place] lifts, holds or supports trunk or limbs, but provides less than half the effort. 2-Substantial/Maximal Assistance-helper does MORE THAN HALF the effort. [place] lifts or holds trunk or limbs and provides more than half the effort. 6-Isfeekkiy-uebxmn does ALL the effort. Patient does none of the effort to complete the activity. Or, the assistance of 2 or more helpers is required for the patient to complete the activity. If activity was not attempted, code reason: 7-Patient Refused. 9-Not Applicable-not attempted and the patient did not perform the activity before the current illness, exacerbation or injury. 10-Not Attempted due to Environmental Limitations-(lack of equipment, weather restraints, etc.). 88-Not Attempted due to Medical Conditions or Safety Concerns. Eating (QC): 6 (Per pt report) Oral Hygiene (QC): 6 Toileting Hygiene (QC): 6 (IND Per PT report) Other Treatment Pt in recliner, sit to stand from recliner, IND. Pt transferred into bathroom, stood at sink IND, no AD. Pt completed oral care/grooming tasks, IND standing at sink. Pt declined toileting, states she just completed with PT prior to OT arrival. Pt then performed functional mobility to [facility], no AD, IND. Pt sat at table. OT tx focused on visual perceptual retraining, increasing neuromuscular reeducation of RUE/fine motor coordination. Pt completed various functional activities seated on table, including placing/removing 1" pegs from foam pegboard with RUE, following printed pattern. Pt completed x5 patterns, 100% accuracy. Pt then completed fine motor task, picking up marbles with tweezers in R hand and placing in tube held in L hand. Pt had increased difficulty with picking up marbles, only completing x3 with tweezers. Pt then completed task with RUE pincer grasp with increased success. Pt took rest breaks as needed due to reports of eye fatigue. Pt returned to her room, no AD, IND, transferring to recliner, IND. Post tx, pt in recliner, call light in reach and all needs met. Education OT Patient Education: Correct positioning, Energy conservation, Modified ADL techniques, Progress toward Goal/Update tx plan, Purpose of tx/functional activities, Rehab process Teaching Recipient: Patient Teaching Methods: Discussion Response to Teaching: Verbalize Understanding OT Fdc Goals Pusher Operator Goals Time Frame: Sep 11, 2023 Acute change in mental status: 0 Inattention: 0 Disorganized thinkin Altered level of consciousness: 0 Eating (QC): 6 Oral Hygiene (QC): 6 Toileting Hygiene (QC): 6 Shower/Bathe Self (QC): 6 Upper Body Dressing (QC): 6 Lower Body Dressing (QC): 6 On/Off Footwear (QC): 6 Additional Goals: 1-Demonstrate ADL Tasks, 2-Verbalize Understanding, 3- ImproveStrength/Luisa 1=Demonstrate adherence to instructed precautions during ADL tasks. 2=Patient will verbalize/demonstrate understanding of assistive devices /modifications for ADL. 3=Patient will improve strength/tolerance for activity to enable patient to perform ADL's. OT Education/Plan Problem List/Assessment Assessment: Decreased Activ Tolerance, Impaired Coordination, Impaired I ADL's, Visual-Perceptual Deficit Discharge Recommendations Plan/Recommendations: Continue POC Treatment Plan/Plan of Care Patient would benefit from OT for education, treatment and training to promote independence in ADL's, mobility, safety and/or upper extremity function for ADL's. Plan of Care: ADL Retraining, Functional Mobility, Group Exercise/Act as Ind, UE Funct Exercise/Act, UE Neuromus Re-Ed/Coord, Visual/Perceptual Retrain Treatment Duration: Sep 11, 2023 Frequency: At least 5 of 7 days/Wk (IRF) Estimated Hrs Per Day: 1.5 hours per day Agreement: Yes Rehab Potential: Good Time Start Time: 10:45 Stop Time: 11:45 DATE: Aug 26, 2023 Total Time Billed (hr/min): 60 Billed Treatment Time 1, ADL (15'), NM 3 (45') CHIP GONZALEZ OT Aug 26, 2023 11:58
--- NOTE | 2023-08-26 14:45 | Therapy Group Daily Note ---
Therapy Daily Group Note Patient Education Topic Home Safety, Exercises Exercises LE Seated Exercise, UE Exercise Session Ratio (pt:therapist): 4:1 Goal of Session: Education on ARU Expectations, Home Safety Strategies, UE/LE Strengthing Goal Met for this Session: Yes Pt Benefit of Group: Contributions to Others, F/U Use of Strategies @Home, Increased Functional Safety, Increased Functional Strength, Improved Cognition, Recognition of Peers, Socialization Other/Notes Group completed with Sanjuana Argueta PTA. Pt ambulated to OT/PT group without AD. OT/PT group consisted of introductions (name,place living, favorite Thanksgiving food), socialization, B UE/LE seated exercises and educational topic of home safety with activity. Pt introduced self appropriately and actively listened to peers. Pt able to complete B UE/LE seated exercises with minimal cues. Pt demonstrated understanding of educational topic by voicing personal experiences and using information gathered during discussion. After therapy, pt sitting in recliner with call light/phone in reach. All needs met. Start Time: 13:00 Stop Time: 14:15 Total Billed Treatment Time: 75 Total Billed Treatment 1-GRP STELLA HANEY Aug 26, 2023 14:44
[2023-08-26] MEDS ORDERED: DOXY-444 PO (15:21)
[2023-08-26] MEDS ORDERED: OFLO5DRO8 OU (15:21)
[2023-08-26 19:54] VITALS: BP 107/59
[2023-08-27] MEDS: VENlafaxine XR 75 MG (EFFEXOR XR) CAP PO SCH (05:55)
--- NOTE | 2023-08-27 07:06 | PM&R Progress Note ---
Subjective HPI/CC On Admission Date Seen by Provider: Aug 27, 2023 Time Seen by Provider: 12:00 Subjective/Events-last exam 08/27/2023: Doing better Ready for DC tomorrow Vision will be a challenge but she has exercises to work on at home 08/26/2023: Doing well No pain reported Improved vision 08/25/2023: No major issues No pain reported Improved cognition 08/24/2023: No new issues Family visiting with her today No pain reported BP stable 08/23/2023: Doing better Using eye patch and alternating No pain reported BP stable Review of Systems General: Fatigue, Malaise Objective Exam Vital Signs Vital Signs Date Time Temp Pulse Resp B/P (MAP) Pulse Ox O2 Delivery O2 Flow Rate FiO2 08/27/23 14:56 Room Air 08/27/23 08:03 35.8 100 16 123/75 (91) 97 Capillary Refill : General Appearance: No Apparent Distress, WD/WN, Chronically ill, Obese HEENT: PERRL/EOMI, Normal ENT Inspection, Pharynx Normal Neck: Full Range of Motion, Normal Inspection, Non Tender, Supple, Carotid Bruit Respiratory: Chest Non Tender, Lungs Clear, Normal Breath Sounds, No Accessory Muscle Use, No Respiratory Distress Cardiovascular: Regular Rate, Rhythm, No Edema, No Gallop, No JVD, No Murmur, Normal Peripheral Pulses Gastrointestinal: Normal Bowel Sounds, No Organomegaly, No Pulsatile Mass, Non Tender, Soft Back: Normal Inspection, No CVA Tenderness, No Vertebral Tenderness Extremity: Normal Capillary Refill, Normal Inspection, Normal Range of Motion, Non Tender, No Calf Tenderness, No Pedal Edema Neurologic/Psychiatric: Alert, Oriented x3, toll test worker II-XII Norm as Tested, Depressed Affect, Disoriented (Subtle recall deficit), Motor Weakness Skin: Normal Color, Warm/Dry Lymphatic: No Adenopathy Results/Procedures Lab Patient resulted labs reviewed. FIM Transfers Therapy Code Descriptions/Definitions Functional [place] Measure: 0=Not Assessed/NA 4=Minimal Assistance 1=Total Assistance 5=Supervision or Setup 2=Maximal Assistance 6=Modified [place] 3=Moderate Assistance 7=Complete IndependenceSCALE: Activities may be completed with or without assistive devices. 1-Sylobnzdiz-riqszaj completes the activity by him/herself with no assistance from a helper. 5-Set-up or Clean-up Assistance-helper sets up or cleans up; patient completes activity. [place] assists only prior to or following the activity. 4-Supervision or Touching Assistance-helper provides verbal cues and/or touching/steadying and/or contact guard assistance as patient completes activity. Assistance may be provided throughout the activity or intermittently. 3-Partial/Moderate Assistance-helper does LESS THAN HALF the effort. [place] lifts, holds or supports trunk or limbs, but provides less than half the effort. 2-Substantial/Maximal Assistance-helper does MORE THAN HALF the effort. [place] lifts or holds trunk or limbs and provides more than half the effort. 6-Ifkcxvmok-rjquat does ALL the effort. Patient does none of the effort to complete the activity. Or, the assistance of 2 or more helpers is required for the patient to complete the activity. If activity was not attempted, code reason: 7-Patient Refused. 9-Not Applicable-not attempted and the patient did not perform the activity before the current illness, exacerbation or injury. 10-Not Attempted due to Environmental Limitations-(lack of equipment, weather restraints, etc.). 88-Not Attempted due to Medical Conditions or Safety Concerns. Roll Left to Right (QC): 6 Sit to Lying (QC): 5 (SBA) Sit to Stand (QC): 6 Chair/Wrb-zc-Iholw Xfer(QC): 6 Car Transfer (QC): 3 (mod(A) /s device to guard hip on seat when bringing legs into "car") Gait Training Does the Patient Walk?: Yes Distance: 250' Walk 10 feet (QC): 5 (SBA) Walk 50 ft with 2 Turns(QC): 5 (SBA) Walk 150 ft (QC): 4 (SBA /c prn cues to (R) obstacles - bumped into doorjam on (R) while exiting room.) Walking 10ft/uneven surface-QC: 3 (min (A) /s device) Gait Assistive Device: None Wheelchair Training Does the Pt Use a Wheelchair?: No Wheel 50 ft with 2 turns (QC): 9 Wheel 150 ft (QC): 9 Stair Training 1 Step (curb) (QC): 3 (min (A) /s device) 4 Steps (QC): 3 (min (A) /c (B) rails - mixed stepping sequence) 12 Steps (QC): 4 (SBA /c (B) rails) Balance Picking up an Object (QC): 3 (min-mod (A) for balance, no device) ADL-Treatment Eating (QC): 6 (Per pt report) Oral Hygiene (QC): 6 Shower/Bathe Self (QC): 4 (SBA) Upper Body Dressing (QC): 3 (Min A donning bra after shower. Pt able to complete tshirt with set up.) Lower Body Dressing (QC): 4 (SBA) On/Off Footwear (QC): 5 Toileting Hygiene (QC): 6 (IND Per PT report) Toilet Transfer (QC): 4 (Using grabbars, pt completes toilet transfers with CGA for safety.) Assessment/Plan Assessment and Plan Assess & Plan/Chief Complaint Assessment: CVA Obesity BMI 39 Prediabetes Migraines Plan: Supportive care Monitor closely CVA protocol meds 08/23/2023: Monitor BP Eye patch technique 08/24/2023: Monitor BP Improved overall 08/25/2023: Monitor closely Fall risk 08/26/2023: Continue eye patch regimen 08/27/2023: Monitor closely DC tomorrow (1) CVA (cerebral vascular accident) MAGDA NASH DO Aug 27, 2023 07:06
[2023-08-27 08:03] VITALS: BP 123/75
[2023-08-27] MEDS: clonazePAM 0.5 MG TABLET PO SCH ×2 (08:05→20:34)
[2023-08-27] MEDS: TRIAMCINOLONE 0.1% OINT (KENALOG) 15 GM TUBE TP SCH ×2 (08:05→20:32)
[2023-08-27] MEDS: GABAPENTIN 300 MG CAPSULE PO SCH (08:05)
[2023-08-27] MEDS: metFORMIN EXT RELEASE 500 MG TABLET PO SCH ×2 (08:05→18:05)
[2023-08-27] MEDS: LORATADINE 10 MG TABLET PO SCH (08:06)
[2023-08-27] MEDS: ASPIRIN enteric coated 81MG TABLET PO SCH (08:06)
[2023-08-27] MEDS: DOCUSATE SODIUM 100 MG CAPSULE PO SCH ×2 (08:06→20:31)
[2023-08-27] MEDS: MELOXICAM 7.5 MG TABLET PO SCH (08:06)
[2023-08-27] MEDS: SENNA W/DOCUSATE TABLET PO SCH ×2 (08:07→20:32)
[2023-08-27] MEDS: OLOPATADINE 0.1% OU SCH ×2 (08:10→20:34)
[2023-08-27] MEDS: FLUTICASONE NASAL SPRAY (120 SPRAYS) NS SCH (08:10)
--- NOTE | 2023-08-27 11:01 | Occupational Ther Daily Note ---
OT Current Status-Daily Note Subjective Pt agreeable to OT tx. Mental Status/Objective Patient Orientation: Person, Place, Time, Situation ADL-Treatment Therapy Code Descriptions/Definitions Functional [place] Measure: 0=Not Assessed/NA 4=Minimal Assistance 1=Total Assistance 5=Supervision or Setup 2=Maximal Assistance 6=Modified [place] 3=Moderate Assistance 7=Complete IndependenceSCALE: Activities may be completed with or without assistive devices. 2-Vlxowfyewz-bsztvth completes the activity by him/herself with no assistance from a helper. 5-Set-up or Clean-up Assistance-helper sets up or cleans up; patient completes activity. [place] assists only prior to or following the activity. 4-Supervision or Touching Assistance-helper provides verbal cues and/or touching/steadying and/or contact guard assistance as patient completes activity. Assistance may be provided throughout the activity or intermittently. 3-Partial/Moderate Assistance-helper does LESS THAN HALF the effort. [place] lifts, holds or supports trunk or limbs, but provides less than half the effort. 2-Substantial/Maximal Assistance-helper does MORE THAN HALF the effort. [place] lifts or holds trunk or limbs and provides more than half the effort. 2-Sxdktrjka-bugzft does ALL the effort. Patient does none of the effort to complete the activity. Or, the assistance of 2 or more helpers is required for the patient to complete the activity. If activity was not attempted, code reason: 7-Patient Refused. 9-Not Applicable-not attempted and the patient did not perform the activity before the current illness, exacerbation or injury. 10-Not Attempted due to Environmental Limitations-(lack of equipment, weather restraints, etc.). 88-Not Attempted due to Medical Conditions or Safety Concerns. Eating (QC): 6 Oral Hygiene (QC): 6 Shower/Bathe Self (QC): 6 Upper Body Dressing (QC): 6 Lower Body Dressing (QC): 6 On/Off Footwear: 6 Toileting Hygiene (QC): 6 Toilet Transfer (QC): 6 Other Treatment Pt in bed, transferred supine to EOB IND. Pt gathered clothes and ADL supplies around room, no AD, IND. Pt completed showering, toileting, dressing and grooming tasks, IND, no LOB noted during tx, no AD. Post tx, pt EOB, call light in reach and all needs met. Education OT Patient Education: Correct positioning, Energy conservation, Modified ADL techniques, Progress toward Goal/Update tx plan, Purpose of tx/functional activities, Rehab process Teaching Recipient: Patient Teaching Methods: Discussion Response to Teaching: Verbalize Understanding BIMS CAM BIMS Expression of Ideas and Wants: Difficulty Understanding Verbal Content: Understands Brief Interview/Mental Status: Yes IRF ONUR BIMS: IRF ONUR BIMS Response (Comments) Value Repitition of Three Words Three 3 Recalls Socks Yes, No Cue Required 2 Recalls Blue Yes, No Cue Required 2 Recalls Bed Yes, No Cue Required 2 Year Correct 3 Month Accurate Within 5 Days 2 Day Correct 1 Total 15 Patient Normally Able to Recal: Current Session, Location of own room, Staff Names and faces, That he/she in a hsp Should Staff Asses. Mental St.: No Memory/Recall Ability: Current Season, Location of Own Room, Staff Names and Faces, That He/She in [facility] CAM Mental Status Change/Baseline: 0 Inattention: 0 Disorganized thinkin Altered level of consciousness: 0 OT Detention Goals Pierce And Shave Press Operator Goals Time Frame: Sep 11, 2023 Acute change in mental status: 0 Inattention: 0 Disorganized thinkin Altered level of consciousness: 0 Eating (QC): 6 (met) Oral Hygiene (QC): 6 (met) Toileting Hygiene (QC): 6 (met) Shower/Bathe Self (QC): 6 (met) Upper Body Dressing (QC): 6 (met) Lower Body Dressing (QC): 6 (met) On/Off Footwear (QC): 6 (met) Additional Goals: 1-Demonstrate ADL Tasks, 2-Verbalize Understanding, 3- ImproveStrength/Luisa 1=Demonstrate adherence to instructed precautions during ADL tasks. 2=Patient will verbalize/demonstrate understanding of assistive devices/modifications for ADL. 3=Patient will improve strength/tolerance for activity to enable patient to perform ADL's. OT Education/Plan Problem List/Assessment Assessment: Decreased Activ Tolerance, Impaired I ADL's, Visual-Perceptual Deficit Discharge Recommendations Plan/Recommendations: Continue POC Treatment Plan/Plan of Care Patient would benefit from OT for education, treatment and training to promote independence in ADL's, mobility, safety and/or upper extremity function for ADL's. Plan of Care: ADL Retraining, Functional Mobility, Group Exercise/Act as Ind, UE Funct Exercise/Act, UE Neuromus Re-Ed/Coord, Visual/Perceptual Retrain Treatment Duration: Sep 11, 2023 Frequency: At least 5 of 7 days/Wk (IRF) Estimated Hrs Per Day: 1.5 hours per day Agreement: Yes Rehab Potential: Good Time Start Time: 10:30 Stop Time: 11:30 DATE: Aug 27, 2023 Total Time Billed (hr/min): 60 Billed Treatment Time 1, ADL 4 CHIP GONZALEZ OT Aug 27, 2023 11:01
--- NOTE | 2023-08-27 12:45 | Physical Therapy Daily Note ---
PT Daily Note-Current Subjective Patient is sleepy this a.m., but agreeable to therapy. Pain Section J - Health Conditions 1. Rarely or not at all 2. Occasionally 3. Frequently 4. Almost constantly 8. Unable to answer Pain Effect on Sleep: 1 Pain Interference with Therapy: 1 Pain Interference w/Day-to-Day: 1 Transfers SCALE: Activities may be completed with or without assistive devices. 2-Tnhiedaybi-qnvtzik completes the activity by him/herself with no assistance from a helper. 5-Set-up or Clean-up Assistance-helper sets up or cleans up; patient completes activity. [place] assists only prior to or following the activity. 4-Supervision or Touching Assistance-helper provides verbal cues and/or touching/steadying and/or contact guard assistance as patient completes activity. Assistance may be provided throughout the activity or intermittently. 3-Partial/Moderate Assistance-helper does LESS THAN HALF the effort. [place] lifts, holds or supports trunk or limbs, but provides less than half the effort. 2-Substantial/Maximal Assistance-helper does MORE THAN HALF the effort. [place] lifts or holds trunk or limbs and provides more than half the effort. 2-Xtrdibtow-gwofux does ALL the effort. Patient does none of the effort to complete the activity. Or, the assistance of 2 or more helpers is required for the patient to complete the activity. If activity was not attempted, code reason: 7-Patient Refused. 9-Not Applicable-not attempted and the patient did not perform the activity b efore the current illness, exacerbation or injury. 10-Not Attempted due to Environmental Limitations-(lack of equipment, weather restraints, etc.). 88-Not Attempted due to Medical Conditions or Safety Concerns. Roll Left & Right (QC): 6 Sit to Lying (QC): 6 Lying to Sitting/Side of Bed(Q: 6 Sit to Stand (QC): 6 Chair/Bkv-jc-Zhnyc Xfer(QC): 6 Toilet Transfer (QC): 6 Car Transfer (QC): 6 Floor transfers (I) x 2. Weight Bearing Full Weight Bearing Full Weight Bearing Gait Training Does the Patient Walk?: Yes Walk 10 feet (QC): 6 Walk 50 ft with 2 Turns(QC): 6 Walk 150 ft (QC): 6 (250'+, including quick pace, retro walk and sidestepping.) Gait Assistive Device: None Wheelchair Training Does the Pt Use a Wheelchair?: No Stair Training 12 Steps (QC): 6 ((I) with tandem or reciprocal steps with 1 hand rail ) Balance Picking up an Object (QC): 6 (/s device) Neuromuscular walking/scanning environment to find small Tootsie rolls in Commons area - able to find all from various heights and floor without difficulty. Assessment Current Status: Excellent Progress PT Half-Way Goals Locomotive Engineer Electric Goals PT Half-Way Goals Time Frame: Sep 05, 2023 Roll Left & Right (QC): 6 Sit to Lying (QC): 6 Lying-Sitting on Side/Bed(QC): 6 Sit to Stand (QC): 6 Chair/Wte-hq-Xqeji Xfer(QC): 6 Toilet Transfer (QC): 6 Car Transfer (QC): 6 Does the Patient Walk: Yes Walk 10 feet (QC): 6 Walk 50ft with 2 Turns (QC): 6 Walk 150 ft (QC): 6 Walking 10ft on Uneven Surface: 6 1 Step (curb) (QC): 6 (/c rail) 4 Steps (QC): 6 12 Steps (QC): 6 Picking up an Object (QC): 6 Wheel 50 feet with 2 turns (QC: 9 Wheel 150 feet: 9 PT Plan Treatment/Plan Treatment Plan: Continue Plan of Care Treatment Plan: Education, Functional Activity Luisa, Functional Strength, Group Therapy, Gait, Safety, Therapeutic Exercise, Transfers Treatment Duration: Sep 05, 2023 Frequency: At least 5 of 7 days/Wk (IRF) Estimated Hrs Per Day: 1.5 hours per day Patient and/or Family Agrees t: Yes Time Time In: 1000 Time Out: 1030 DATE: Aug 27, 2023 Total Billed Treatment Time: 30 Total Billed Treatment 1, GT, Kristel Nguyen PT Aug 27, 2023 12:45
--- NOTE | 2023-08-27 13:50 | Occupational Ther Daily Note ---
OT Current Status-Daily Note Subjective Pt in bed, states she is very tired. ADL-Treatment Therapy Code Descriptions/Definitions Functional [place] Measure: 0=Not Assessed/NA 4=Minimal Assistance 1=Total Assistance 5=Supervision or Setup 2=Maximal Assistance 6=Modified [place] 3=Moderate Assistance 7=Complete IndependenceSCALE: Activities may be completed with or without assistive devices. 0-Oxdaixinqe-gmwacvz completes the activity by him/herself with no assistance from a helper. 5-Set-up or Clean-up Assistance-helper sets up or cleans up; patient completes activity. [employer] assists only prior to or following the activity. 4-Supervision or Touching Assistance-helper provides verbal cues and/or touching/steadying and/or contact guard assistance as patient completes activity. Assistance may be provided throughout the activity or intermittently. 3-Partial/Moderate Assistance-helper does LESS THAN HALF the effort. [employer] lifts, holds or supports trunk or limbs, but provides less than half the effort. 2-Substantial/Maximal Assistance-helper does MORE THAN HALF the effort. [employer] lifts or holds trunk or limbs and provides more than half the effort. 4-Qgxgyymgd-bmyagq does ALL the effort. Patient does none of the effort to comp lete the activity. Or, the assistance of 2 or more helpers is required for the patient to complete the activity. If activity was not attempted, code reason: 7-Patient Refused. 9-Not Applicable-not attempted and the patient did not perform the activity before the current illness, exacerbation or injury. 10-Not Attempted due to Environmental Limitations-(lack of equipment, weather restraints, etc.). 88-Not Attempted due to Medical Conditions or Safety Concerns. Other Treatment Pt in bed, transferred supine to sit EOB, IND. OT provided pt with printed visual scanning/handwriting worksheets. Pt demo'd ability to write name on back of sheet using R hand, increased time required but each letter was legible. Pt then completed printed fine motor worksheet, increased time. Pt states she feels ready to go home, but is somewhat nervous. OT provided therapeutic listen ing/communication with pt. Post tx, pt EOB, call light in reach and all needs met. OT Silk Screen Printer Machine Goals Silk Screen Printer Machine Goals Time Frame: Sep 11, 2023 Acute change in mental status: 0 Inattention: 0 Disorganized thinkin Altered level of consciousness: 0 Eating (QC): 6 (met) Oral Hygiene (QC): 6 (met) Toileting Hygiene (QC): 6 (met) Shower/Bathe Self (QC): 6 (met) Upper Body Dressing (QC): 6 (met) Lower Body Dressing (QC): 6 (met) On/Off Footwear (QC): 6 (met) Additional Goals: 1-Demonstrate ADL Tasks, 2-Verbalize Understanding, 3- ImproveStrength/Luisa 1=Demonstrate adherence to instructed precautions during ADL tasks. 2=Patient will verbalize/demonstrate understanding of assistive devices/modifications for ADL. 3=Patient will improve strength/tolerance for activity to enable patient to perform ADL's. OT Education/Plan Problem List/Assessment Assessment: Decreased Activ Tolerance, Impaired I ADL's, Visual-Perceptual Deficit Discharge Recommendations Plan/Recommendations: Continue POC Treatment Plan/Plan of Care Patient would benefit from OT for education, treatment and training to promote independence in ADL's, mobility, safety and/or upper extremity function for ADL's. Plan of Care: ADL Retraining, Functional Mobility, Group Exercise/Act as Ind, UE Funct Exercise/Act, UE Neuromus Re-Ed/Coord, Visual/Perceptual Retrain Treatment Duration: Sep 11, 2023 Frequency: At least 5 of 7 days/Wk (IRF) Estimated Hrs Per Day: 1.5 hours per day Agreement: Yes Rehab Potential: Good Time Start Time: 13:00 Stop Time: 13:30 DATE: Aug 27, 2023 Total Time Billed (hr/min): 30 Billed Treatment Time 1, NM 2 CHIP GONZALEZ OT Aug 27, 2023 13:50
--- NOTE | 2023-08-27 14:50 | Speech Therapy Daily Note ---
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 Pt reports being tired, but was agreeable to participate. Objective Pt participates in complex written language tasks, completes with 60% accuracy, demonstrates fair organization of thought, and requires mod verbal cues. Pt completes simple problem solving tasks with 75% accuracy with mod verbal cues. Pt expresses embarrassment regarding handwriting. Pt is asked to write down her answers in order to practice her handwriting, pt benefits from verbal cues to leave spaces in between letters. Speech Short Term Goals Short Term Goals Short Term Goals Pt will complete simple problem solving tasks with 90% accuracy. Pt will demonstrate ability to comprehend details from moderately complex passages with verbal presentation with 90% accuracy. Pt will formulate complex language in spoken and written form with good organization at 90% accuracy. Pt will read at the paragraph level with 90% comprehension. Speech Flight Line Service Attendant Goals Flight Line Service Attendant Goals Pt will demonstrate improved cognitive-linguistic abilities for problem solving, written and verbal expression. Speech-Plan Treatment Plan Speech Therapy Treatment Plan: Continue Plan of Care Treatment Duration: Aug 23, 2023 Frequency: At least 5 of 7 days/Wk (IRF) Estimated Hrs Per Day: Other (45 min/day) Rehab Potential: Good Time Speech Therapy Time In: 08:55 Speech Therapy Time Out: 09:40 DATE: Aug 27, 2023 Total Billed Time: 45 Billed Treatment Time 1 SLTS 45 min Jess Layne Aug 27, 2023 14:49
--- NOTE | 2023-08-27 15:43 | Physical Therapy Daily Note ---
PT Daily Note-Current Subjective Patient asleep in bed when PT entered room. Agreeable to work with PT this pm, and to go outside for higher level ambulation. Eye patch taken off at 2pm during patient's treatment, per schedule. Pain Section J - Health Conditions 1. Rarely or not at all 2. Occasionally 3. Frequently 4. Almost constantly 8. Unable to answer Pain Effect on Sleep: 1 Pain Interference with Therapy: 1 Pain Interference w/Day-to-Day: 1 Transfers SCALE: Activities may be completed with or without assistive devices. 3-Ksbcmjunsg-bgakxvc completes the activity by him/herself with no assistance fr om a helper. 5-Set-up or Clean-up Assistance-helper sets up or cleans up; patient completes activity. Eldred assists only prior to or following the activity. 4-Supervision or Touching Assistance-helper provides verbal cues and/or touching/steadying and/or contact guard assistance as patient completes activity. Assistance may be provided throughout the activity or intermittently. 3-Partial/Moderate Assistance-helper does LESS THAN HALF the effort. Eldred lifts, holds or supports trunk or limbs, but provides less than half the effort. 2-Substantial/Maximal Assistance-helper does MORE THAN HALF the effort. Eldred lifts or holds trunk or limbs and provides more than half the effort. 8-Jrurjramn-uzcnih does ALL the effort. Patient does none of the effort to complete the activity. Or, the assistance of 2 or more helpers is required for the patient to complete the activity. If activity was not attempted, code reason: 7-Patient Refused. 9-Not Applicable-not attempted and the patient did not perform the activity before the current illness, exacerbation or injury. 10-Not Attempted due to Environmental Limitations-(lack of equipment, weather restraints, etc.). 88-Not Attempted due to Medical Conditions or Safety Concerns. Roll Left & Right (QC): 6 Sit to Lying (QC): 6 Lying to Sitting/Side of Bed(Q: 6 Sit to Stand (QC): 6 Chair/Qec-ty-Uwgdo Xfer(QC): 6 Toilet Transfer (QC): 6 Weight Bearing Full Weight Bearing Full Weight Bearing Gait Training Does the Patient Walk?: Yes Distance: 1000'+ x 2 Walk 10 feet (QC): 6 Walk 50 ft with 2 Turns(QC): 6 Walk 150 ft (QC): 6 Walking 10ft/uneven surface-QC: 6 (curbs, 2 different ramps, steps /s rail, gravel, wooden bridge) Wheelchair Training Does the Pt Use a Wheelchair?: No Stair Training 1 Step (curb) (QC): 6 4 Steps (QC): 6 12 Steps (QC): 6 (/c railing) Balance Picking up an Object (QC): 6 Treatments Discussion of home safety preparations and patient's concerns re. returning home - she states she is anxious and is the "do-er" at home - she is anxious about asking for help. Discussed continuing PT as outpatient as soon as Home Health in finished and that she can expect the most recovery the first 4-6 weeks following a stroke, so the quicker she can get to OP PT, the better. Re-score of [facility] sitting balance scale: 5/5. Rescore of KU standing balance scale: 5/5 PT [facility] Goals Manager Room Goals PT Manager Room Goals Time Frame: Sep 05, 2023 Roll Left & Right (QC): 6 Sit to Lying (QC): 6 Lying-Sitting on Side/Bed(QC): 6 Sit to Stand (QC): 6 Chair/Ssc-ug-Skyvu Xfer(QC): 6 Toilet Transfer (QC): 6 Car Transfer (QC): 6 Does the Patient Walk: Yes Walk 10 feet (QC): 6 Walk 50ft with 2 Turns (QC): 6 Walk 150 ft (QC): 6 Walking 10ft on Uneven Surface: 6 1 Step (curb) (QC): 6 (/c rail) 4 Steps (QC): 6 12 Steps (QC): 6 Picking up an Object (QC): 6 Wheel 50 feet with 2 turns (QC: 9 Wheel 150 feet: 9 PT Plan Treatment/Plan Treatment Plan: Continue Plan of Care, Discontinue PT, goals met (Patient to D/C home 08/28/23.) Treatment Plan: Education, Functional Activity Luisa, Functional Strength, Group Therapy, Gait, Safety, Therapeutic Exercise, Transfers Treatment Duration: Sep 05, 2023 Frequency: At least 5 of 7 days/Wk (IRF) Estimated Hrs Per Day: 1.5 hours per day Patient and/or Family Agrees t: Yes Time Time In: 1345 Time Out: 1430 DATE: Aug 27, 2023 Total Billed Treatment Time: 45 Total Billed Treatment 1, 3GT Kristel Galarza PT Aug 27, 2023 15:43
[2023-08-27 21:00] VITALS: BP 102/67
[2023-08-28] MEDS ORDERED: VENL150C98 PO (04:48)
[2023-08-28] MEDS ORDERED: CYCL10TA25 PO (04:48)
[2023-08-28] MEDS ORDERED: GABA300C PO (04:48)
[2023-08-28] MEDS ORDERED: ASPI-1238 PO (04:48)
[2023-08-28] MEDS ORDERED: METF-478 PO (04:48)
[2023-08-28] MEDS ORDERED: MELO7.5T46 PO (04:48)
[2023-08-28] MEDS ORDERED: CLON0.5T4 PO (04:48)
[2023-08-28] MEDS ORDERED: ATOR80TA76 PO (04:48)
--- NOTE | 2023-08-28 04:50 | D/C HH Face to Face Order ---
D/C Face to Face Orders Reconcile Patient Problems Problems Reviewed?: Yes Instructions for Patient Via [facility], Patient Instructions/FollowUp: PCP as scheduled Physician to follow Patient: PCP Discharge Diet for Home: No Restrictions Patient Problems: CVA Patient Data-Allergies,Ht & Wt Patient Allergies: Coded Allergies: No Known Drug Allergies (Unverified , 08/22/23) Home Health Need/Face to Face Date of Face to Face: Aug 28, 2023 Clinical Findings: Generalized weakness and fatigue, Instability, Muscle weakness I have seen Pt dusv-[id number]: Yes Discharged To: Home Diagnosis/Conditions: CVA Patient is Homebound due to: CognItive deficits, Armando fall risk due to instabilty, Muscle weakness Homebound Status Due to the above stated illness, injury or surgical procedure (medical condition or diagnosis) and associated clinical findings, the patient is home bound because of his/her inability to leave home except with aid of a supportive device and/or person AND leaving the home requires a considerable and taxing effort or is medically contraindicated. Pt req the following assistanc: [facility] Nursing Orders Home Health Services Order: Nursing Services, Receptionist Telephone Operator-Evaluate & Treat, Physical Therapy-Evaluate & Treat Certify Stmt I certify that this patient is under my care and that I, a nurse practitioner or a physician; a office manager executive assistant working with me, had a face to face encounter that - meets the physician face to face encounter requirements with this patient as dated. MAGDA NASH DO Aug 28, 2023 04:50
--- NOTE | 2023-08-28 04:51 | Discharge Summary ---
Diagnosis/Chief Complaint Date of Admission Aug 22, 2023 at 13:26 Date of Discharge Discharge Date: Aug 28, 2023 Discharge Diagnosis Assessment: CVA Obesity BMI 39 Prediabetes Migraines Plan: Supportive care Monitor closely CVA protocol meds 08/23/2023: Monitor BP Eye patch technique 08/24/2023: Monitor BP Improved overall 08/25/2023: Monitor closely Fall risk 08/26/2023: Continue eye patch regimen 08/27/2023: Monitor closely DC tomorrow (1) CVA (cerebral vascular accident) Discharge Summary Discharge Physical Examination Allergies: Coded Allergies: No Known Drug Allergies (Unverified , 08/22/23) Vitals & I&Os Vital Signs Date Time Temp Pulse Resp B/P (MAP) Pulse Ox O2 Delivery O2 Flow Rate FiO2 08/28/23 11:05 36.4 82 14 104/51 96 Room Air General Appearance: Alert, Oriented X3, Cooperative Respiratory: Clear to Auscultation Cardiovascular: Regular Rate Psych/Mental Status: Mental Status NL Hospital Course Was the Problem List Reviewed?: Yes Patient had an uneventful course after she was admitted following a CVA with cognitive deficits and visual impairments. She was able to regain cognitive abilities and with the use of eye patch she was able to regain visual function somewhat but she remained stable and labs remained stable and was deemed stable for DC. Labs (last 24 hrs) Laboratory Tests 08/23/23 05:55: White Blood Count 12.2H, Red Blood Count 4.43, Hemoglobin 13.1, Hematocrit 40, Mean Corpuscular Volume 91, Mean Corpuscular Hemoglobin 30, Mean Corpuscular Hemoglobin Concent 33, Red Cell Distribution Width 13.4, Platelet Count 239, Mean Platelet Volume 9.9, Immature Granulocyte % (Auto) 1, Neutrophils (%) (Auto) 76H, Lymphocytes (%) (Auto) 17, Monocytes (%) (Auto) 6, Eosinophils (%) (Auto) 1, Basophils (%) (Auto) 0, Neutrophils # (Auto) 9.3H, Lymphocytes # (Auto) 2.1, Monocytes # (Auto) 0.7, Eosinophils # (Auto) 0.1, Basophils # (Auto) 0.0, Immature Granulocyte # (Auto) 0.1, Sodium Level 139, Potassium Level 4.1, Chloride Level 111H, Carbon Dioxide Level 20L, Anion Gap 8, Blood Urea Nitrogen 11, Creatinine 0.78, Estimat Glomerular Filtration Rate 105, BUN/Creatinine Ratio 14, Glucose Level 104, Calcium Level 8.8, Corrected Calcium 9.3, Total Bilirubin 0.3, Aspartate Amino Transf (AST/SGOT) 16, Alanine Aminotransferase (ALT/SGPT) 18, Alkaline Phosphatase 88, Total Protein 6.5, Albumin 3.4 08/26/23 05:41: White Blood Count 10.3, Red Blood Count 4.40, Hemoglobin 12.8, Hematocrit 40, Mean Corpuscular Volume 90, Mean Corpuscular Hemoglobin 29, Mean Corpuscular Hemoglobin Concent 32, Red Cell Distribution Width 13.1, Platelet Count 224, Mean Platelet Volume 10.3, Immature Granulocyte % (Auto) 1, Neutrophils (%) (Auto) 72, Lymphocytes (%) (Auto) 20, Monocytes (%) (Auto) 6, Eosinophils (%) (Auto) 1, Basophils (%) (Auto) 0, Neutrophils # (Auto) 7.4, Lymphocytes # (Auto) 2.1, Monocytes # (Auto) 0.6, Eosinophils # (Auto) 0.1, Basophils # (Auto) 0.0, Immature Granulocyte # (Auto) 0.1, Sodium Level 137, Potassium Level 3.8, Chlori de Level 109H, Carbon Dioxide Level 20L, Anion Gap 8, Blood Urea Nitrogen 11, Creatinine 0.74, Estimat Glomerular Filtration Rate 112, BUN/Creatinine Ratio 15, Glucose Level 99, Calcium Level 8.7, Corrected Calcium 9.0, Total Bilirubin 0.3, Aspartate Amino Transf (AST/SGOT) 23, Alanine Aminotransferase (ALT/SGPT) 30, Alkaline Phosphatase 98, Total Protein 6.8, Albumin 3.6 Pending Labs Laboratory Tests 08/23/23 05:55: White Blood Count 12.2, Red Blood Count 4.43, Hemoglobin 13.1, Hematocrit 40, Mean Corpuscular Volume 91, Mean Corpuscular Hemoglobin 30, Mean Corpuscular Hemoglobin Concent 33, Red Cell Distribution Width 13.4, Platelet Count 239, Mean Platelet Volume 9.9, Immature Granulocyte % (Auto) 1, Neutrophils (%) (Auto) 76, Lymphocytes (%) (Auto) 17, Monocytes (%) (Auto) 6, Eosinophils (%) (Auto) 1, Basophils (%) (Auto) 0, Neutrophils # (Auto) 9.3, Lymphocytes # (Auto) 2.1, Monocytes # (Auto) 0.7, Eosinophils # (Auto) 0.1, Basophils # (Auto) 0.0, Immature Granulocyte # (Auto) 0.1, Sodium Level 139, Potassium Level 4.1, Chloride Level 111, Carbon Dioxide Level 20, Anion Gap 8, Blood Urea Nitrogen 11, Creatinine 0.78, Estimat Glomerular Filtration Rate 105, BUN/Creatinine Ratio 14, Glucose Level 104, Calcium Level 8.8, Corrected Calcium 9.3, Total Bilirubin 0.3, Aspartate Amino Transf (AST/SGOT) 16, Alanine Aminotransferase (ALT/SGPT) 18, Alkaline Phosphatase 88, Total Protein 6.5, Albumin 3.4 08/26/23 05:41: White Blood Count 10.3, Red Blood Count 4.40, Hemoglobin 12.8, Hematocrit 40, Mean Corpuscular Volume 90, Mean Corpuscular Hemoglobin 29, Mean Corpuscular Hemoglobin Concent 32, Red Cell Distribution Width 13.1, Platelet Count 224, Mean Platelet Volume 10.3, Immature Granulocyte % (Auto) 1, Neutrophils (%) (Auto) 72, Lymphocytes (%) (Auto) 20, Monocytes (%) (Auto) 6, Eosinophils (%) ( Auto) 1, Basophils (%) (Auto) 0, Neutrophils # (Auto) 7.4, Lymphocytes # (Auto) 2.1, Monocytes # (Auto) 0.6, Eosinophils # (Auto) 0.1, Basophils # (Auto) 0.0, Immature Granulocyte # (Auto) 0.1, Sodium Level 137, Potassium Level 3.8, Chloride Level 109, Carbon Dioxide Level 20, Anion Gap 8, Blood Urea Nitrogen 11, Creatinine 0.74, Estimat Glomerular Filtration Rate 112, BUN/Creatinine Ratio 15, Glucose Level 99, Calcium Level 8.7, Corrected Calcium 9.0, Total Bilirubin 0.3, Aspartate Amino Transf (AST/SGOT) 23, Alanine Aminotransferase (ALT/SGPT) 30, Alkaline Phosphatase 98, Total Protein 6.8, Albumin 3.6 Discharge Home Medications: Active Scripts Active Meloxicam 7.5 Mg Tablet 15 Mg PO DAILY Aspirin EC (Aspirin) 81 Mg Tablet.dr 324 Mg PO DAILY Atorvastatin Calcium 80 Mg Tablet 80 Mg PO HS Venlafaxine HCl ER (Venlafaxine HCl) 150 Mg Cap.er.24h 150 Mg PO DAILY Metformin HCl ER (Metformin HCl) 500 Mg Tab.er.24 1,000 Mg PO BID WITH MEALS TAKES 2 (500MG) TABS Neurontin (Gabapentin) 300 Mg Capsule 300 Mg PO DAILY Cyclobenzaprine HCl 10 Mg Tablet 10 Mg PO TID PRN Clonazepam 0.5 Mg Tablet 0.5 Mg PO BID PRN Reported Olopatadine HCl 0.1 % Drops 1 Drop OU BID Ketoconazole 2 % Shampoo 1 Applic TP 3X WEEKLY Flonase Allergy Relief (Fluticasone Propionate) 50 Mcg/Actuation Loraine.susp 1-2 Loraine NSEACH DAILY Instructions to patient/family Please see electronic discharge instructions given to patient. Diagnosis/Problems Diagnosis/Problems (1) CVA (cerebral vascular accident) MAGDA NASH DO Aug 28, 2023 04:50
[2023-08-28] MEDS: VENlafaxine XR 75 MG (EFFEXOR XR) CAP PO SCH (05:33)
[2023-08-28 08:00] VITALS: BP 104/51
[2023-08-28] MEDS: clonazePAM 0.5 MG TABLET PO SCH (08:09)
[2023-08-28] MEDS: MELOXICAM 7.5 MG TABLET PO SCH (08:09)
[2023-08-28] MEDS: ASPIRIN enteric coated 81MG TABLET PO SCH (08:09)
[2023-08-28] MEDS: LORATADINE 10 MG TABLET PO SCH (08:09)
[2023-08-28] MEDS: GABAPENTIN 300 MG CAPSULE PO SCH (08:09)
[2023-08-28] MEDS: SENNA W/DOCUSATE TABLET PO SCH (08:10)
[2023-08-28] MEDS: DOCUSATE SODIUM 100 MG CAPSULE PO SCH (08:10)
[2023-08-28] MEDS: metFORMIN EXT RELEASE 500 MG TABLET PO SCH (08:10)
[2023-08-28] MEDS: OLOPATADINE 0.1% OU SCH (08:14)
[2023-08-28] MEDS: TRIAMCINOLONE 0.1% OINT (KENALOG) 15 GM TUBE TP SCH (08:14)
[2023-08-28] MEDS: FLUTICASONE NASAL SPRAY (120 SPRAYS) NS SCH (08:14)
[2023-08-28 11:05] VITALS: BP 104/51
--- NOTE | 2023-08-29 07:28 | Therapy Team Discharge Summary ---
Therapy Discharge Summary Discharge Recommendations Date of Discharge Aug 28, 2023 at 11:09 Therapy D/C Recommendations: Occupational Therapy Home Care Physical Therapy Roll Left to Right (QC): 6 Sit to Lying (QC): 6 Lying to Sitting/Side of Bed(Q: 6 Sit to Stand (QC): 6 Chair/Ujh-tp-Khefr Xfer(QC): 6 Toilet Transfer (QC): 6 Car Transfer (QC): 6 Does the Patient Walk: Yes Mode of Locomotion: Walk Anticipated Mode of Locomotion: Walk Walk 10 feet (QC): 6 Walk 50 ft with 2 Turns(QC): 6 Walk 150 ft (QC): 6 Walking 10ft on uneven surface: 6 (curbs, 2 different ramps, steps /s rail, gravel, wooden bridge) Distance: 200' Gait Assistive Device: None Does the Pt Use a Wheelchair: No Wheel 50 ft with 2 turns (QC): 9 Wheel 150 ft (QC): 9 1 Step (curb) (QC): 6 4 Steps (QC): 6 12 Steps (QC): 6 (/c railing) Balance Sitting Static: Good Balance Sitting Dynamic: Fair Balance-Standing Static: Fair Picking up an Object (QC): 6 Occupational Therapy Pt admitted to [facility] s/p CVA. At [facility], pt was independent with ADLs and functional mobility, no AD. Upon initial evaluation, pt required set up assistance wtih eating, UBD, and footwear, SBA showering, LBD and toileting, and she was independent with oral care. OT tx focused on increasing BUE Strength and activity tolerance, neuromuscular reeducation, visual scanning education, and increasing safety and independence with ADLS and functional mobility. Pt made good progress towards goals, attaining all LTGs. Pt discharged home with family, d/c from OT. 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 Correction Goals PT [employer]ark Paralegal Goals Time Frame: Sep 05, 2023 Roll Left to Right (QC): 6 Sit to Lying (QC): 6 Lying-Sitting on Side/Bed(QC): 6 Sit to Stand (QC): 6 Chair/Ooh-we-Qndob Xfer(QC): 6 Toilet/Commode Transfer (QC): 6 Car Transfer (QC): 6 Does the Patient Walk: Yes Walk 10 feet (QC): 6 Walk 10ft-Uneven Surface(QC): 6 Walk 50ft with 2 Turns (QC): 6 Walk 150 ft (QC): 6 Wheel 50 feet with 2 turns (QC: 9 Wheel 150 feet: 9 1 Step (curb) (QC): 6 (/c rail) 4 Steps (QC): 6 12 Steps (QC): 6 Picking up an Object (QC): 6 OT [employer] Paralegal Goals Correction Goals Time Frame: Sep 11, 2023 Acute change in mental status: 0 Inattention: 0 Disorganized thinkin Altered level of consciousness: 0 Eating (QC): 6 (met) Oral Hygiene (QC): 6 (met) Toileting Hygiene (QC): 6 (met) Shower/Bathe Self (QC): 6 (met) Upper Body Dressing (QC): 6 (met) Lower Body Dressing (QC): 6 (met) On/Off Footwear (QC): 6 (met) Additional Goals: 1-Demonstrate ADL Tasks, 2-Verbalize Understanding, 3- ImproveStrength/Luisa 1=Demonstrate adherence to instructed precautions during ADL tasks. 2=Patient will verbalize/demonstrate understanding of assistive devices/modifications for ADL. 3=Patient will improve strength/tolerance for activity to enable patient to perform ADL's. Speech Correction Goals Correction Goals Pt will demonstrate improved cognitive-linguistic abilities for problem solving, written and verbal expression. HCIP GONZALEZ OT Aug 29, 2023 07:28
== END 2023-08-28 11:09 | disposition home health service (06) | DRG 57 ==
LOC: EEVIPCON 13:26
PROVIDERS: ADMIT Internal Medicine; ATTEND Internal Medicine
DX: I69.319 Unspecified symptoms and signs involving cognitive functions following cerebral infarction (principal); I69.398 Other sequelae of cerebral infarction; H53.8 Other visual disturbances; R26.89 Other abnormalities of gait and mobility; F17.210 Nicotine dependence, cigarettes, uncomplicated; G43.909 Migraine, unspecified, not intractable, without status migrainosus; R73.03 Prediabetes; E66.9 Obesity, unspecified; Z68.39 Body mass index [BMI] 39.0-39.9, adult; Z91.81 History of falling; Z79.84 Long term (current) use of oral hypoglycemic drugs; Z79.899 Other long term (current) drug therapy; Z79.1 Long term (current) use of non-steroidal anti-inflammatories (NSAID); Z79.82 Long term (current) use of aspirin
CPT/HCPCS: 36415; 80053; 85025